=== PATIENT | male | born 1975 | race Hispanic/Latino ===

== ENCOUNTER 2017-07-06 18:47 | Inpatient (IN) | payer BC ==
[~2017-07-06] VITALS: Ht 170.2 cm; Wt 90.3 kg
[~2017-07-06 18:47] MED LIST: CELEXA20 MG PO; CLONIDINE HCL0.1 MG PO; LISINOPRIL-HCT1 EACH PO; NO KNOWN MEDS; TOPROL XL25 MG PO
[2017-07-06] MEDS ORDERED: ASPIRIN 81 MG CHEW TAB PO ONE (19:30)
[2017-07-06] MEDS ORDERED: NITROGLYCERIN 2% OINT 1 GM PKT TOP ONE (19:30)
[2017-07-06] MEDS ORDERED: METOPROLOL TARTRATE 25 MG TAB PO ONE (19:30)
[2017-07-06 19:44] LABS: BASOPHILS # (AUTO) 0.1 (0.0-0.1); BASOPHILS % 0.7 % (0.0-1.0); EOSINOPHILS # (AUTO) 0.2 (0.0-0.4); EOSINOPHILS % 1.4 % (0.0-6.0); HEMATOCRIT 46.5 % (38.2-49.6); HEMOGLOBIN 15.7 g/dL (14.0-18.0); LYMPHOCYTES # (AUTO) 3.4 (1.0-3.2); LYMPHOCYTES % 31.1 % (18.0-39.1); MEAN CORPUSCULAR HEMOGLOBIN 29.8 pg (28-32); MEAN CORPUSCULAR HGB CONC 33.8 g/dL (31-35); MEAN CORPUSCULAR VOLUME 88.2 fL (81-99); MONOCYTES # (AUTO) 1.2 (0.2-0.8); MONOCYTES % 10.8 % (4.4-11.3); NEUTROPHILS % 55.6 % (38.7-80.0); PLATELET COUNT 229 x10e3/uL (140-360); RED BLOOD COUNT 5.27 x10e6/uL (4.3-5.7); RED CELL DISTRIBUTION WIDTH 12.9 % (11.7-14.4)
[2017-07-06 19:45] LABS: KETONES,URINE NEGATIVE (NEGATIVE); LEUKOCYTE ESTERASE ,URINE TRACE (NEGATIVE); URINE UROBILINOGEN 8 mg/dL (0.2 - 1)
[2017-07-06 19:49] LABS: BILIRUBIN,URINE 1+ (NEGATIVE); CLARITY,URINE SL CLOUDY (CLEAR); COLOR,URINE YELLOW (YELLOW); NITRITE,URINE POSITIVE (NEGATIVE); PROTEIN,URINE DIPSTICK 2+ (NEGATIVE)
[2017-07-06 19:52] LABS: INR 1.4; PARTIAL THROMBOPLASTIN TIME 31.9 seconds (23.8-35.5); PROTHROMBIN TIME 17.9 seconds (11.9-14.5)
[2017-07-06 19:53] LABS: AMPHETAMINES SCREEN,URINE NEGATIVE (NEGATIVE); BENZODIAZEPINES SCREEN,URINE NEGATIVE (NEGATIVE); CANNABINOIDS SCREEN,URINE NEGATIVE (NEGATIVE); PHENCYCLIDINE SCREEN,URINE NEGATIVE (NEGATIVE)
[2017-07-06 19:57] LABS: STREPTOCOCCUS GRP A ANTIGEN NEGATIVE (NEGATIVE)
[2017-07-06 20:01] LABS: EPITHELIAL CELLS,URINE RARE /LPF; RBC,URINE 0-5 /HPF (0-5)
[2017-07-06 20:02] LABS: ALANINE AMINOTRANSFERASE 35 IU/L (0-55); ALBUMIN 3.7 g/dL (3.5-5.0); ALBUMIN/GLOBULIN RATIO 1.1 (0.8-2.0); ALKALINE PHOSPHATASE 53 IU/L (40-150); AMYLASE 23 U/L (25-125); ANION GAP 15.8 mmol/L (8-16); BLOOD UREA NITROGEN 17 mg/dL (7-26); BUN/CREATININE RATIO 16 (6-25); CALCIUM 9.1 mg/dL (8.4-10.2); CARBON DIOXIDE 22 mmol/L (22-29); CHLORIDE 108 mmol/L (98-107); CREATINE KINASE 54 IU/L (30-200); CREATININE, SERUM 1.07 mg/dL (0.72-1.25); EST GLOMERULAR FILTRATION RATE > 60 ML/MIN (60-); GLUCOSE 117 mg/dL (74-118); LIPASE 8 U/L (8-78); MAGNESIUM 1.5 MG/DL (1.3-2.1); POTASSIUM 3.8 mmol/L (3.5-5.1); SODIUM 142 mmol/L (136-145)
[2017-07-06 20:06] LABS: INFLUENZAE A&B ANTIGEN (RAPID) NEGATIVE (NEGATIVE)
[2017-07-06 20:22] LABS: THYROID STIMULATING HORMONE 4.442 uIU/mL (0.350-4.940); TROPONIN I 0.059 ng/mL (0-0.300)
--- NOTE | 2017-07-06 21:06 | Diagnostic Imaging Report ---
EXAM: CT Chest WITH contrast (PE protocol) 07/06/2017 8:12 PM INDICATION: \S\PE PROTOCOL, SOB POSITIVE D-DIMER COMPARISON: None TECHNIQUE: Chest was scanned utilizing a multidetector helical scanner from the lung apex through the level of the adrenal glands without administration of IV contrast. Coronal and sagittal reformations were obtained. PE protocol was performed. IV CONTRAST: 100 mL of Isovue 370 COMPLICATIONS: None RADIATION DOSE: Total DLP: 565.4 mGy*cm Estimated effective dose: (DLP x 0.014 x size factor) mSv CTDIvol has been reviewed. It is below the limits set by the Radiation Protocol Committee (RPC). FINDINGS: LINES/ TUBES: None. LUNGS AND AIRWAYS: Good contrast bolus. No pulmonary emboli. Focal patchy groundglass opacity in the right lower lobe. Airways are normal. PLEURA: Moderate right and small left pleural effusion. HEART AND MEDIASTINUM: The thyroid gland is normal. No mediastinal, hilar or axillary lymphadenopathy. Multiple small nonspecific mediastinal lymph nodes. The heart is mildly enlarged. There is no pericardial effusion. Residual thymic tissues. UPPER ABDOMEN: Reflux of contrast into the IVC and hepatic veins suggesting elevated right heart pressure. BONES: The visualized bony thorax is within normal limits. SOFT TISSUES: Unremarkable. IMPRESSION: 1. No pulmonary emboli. 2. Mild cardiomegaly. Reflux of contrast into hepatic veins, indicating elevated right heart pressure 3. Multiple small nonspecific mediastinal lymph nodes. 4. Moderate right and small left pleural effusions. 5. Focal nonspecific patchy groundglass opacities in the right lower lobe. This may represent focal pneumonia. Signed by: Dr. Javier Valles M.D. on 07/06/2017 9:02 PM
--- NOTE | 2017-07-06 21:16 | Diagnostic Imaging Report ---
CHEST 2 VIEWS, Technique: CHEST 2 VIEWS Comparison: None Clinical history: \S\SOB/NELSON X 2 WEEKS, COUGH \S\[id number] \S\1949 DISCUSSION: Mildly enlarged cardiac silhouette. No edema or consolidation. No pleural effusion or pneumothorax. IMPRESSION: Mildly enlarged cardiac silhouette. Otherwise negative. Signed by: Dr Dottie Zaragoza MD on 07/06/2017 9:12 PM
[2017-07-06] MEDS ORDERED: ENALAPRILAT IV INJ 1.25 MG/ML VIAL IV STA (21:25)
[2017-07-06] MEDS: CEFTRIAXONE SOD 1 GM VIAL IV SCH (21:42)
[2017-07-06] MEDS: AZITHROMYCIN 500MG/NS 250 ML 250 ML IV SCH (21:42)
[2017-07-06 23:15] VITALS: BP 133/101
[2017-07-06] MEDS ORDERED: ONDANSETRON HCL INJ 2 MG/ML VIAL IV PRN (23:15)
[2017-07-07] VITALS (7 sets, daily range): BP systolic 105–143; BP diastolic 59–104
[2017-07-07] MEDS: NITROGLYCERIN 2% OINT 1 GM PKT TOP SCH ×5 (06:00→23:51)
[2017-07-07 08:21] LABS: BASOPHILS # (AUTO) 0.1 (0.0-0.1); BASOPHILS % 0.6 % (0.0-1.0); EOSINOPHILS # (AUTO) 0.1 (0.0-0.4); EOSINOPHILS % 1.1 % (0.0-6.0); HEMATOCRIT 40.9 % (38.2-49.6); HEMOGLOBIN 13.8 g/dL (14.0-18.0); LYMPHOCYTES # (AUTO) 3.1 (1.0-3.2); LYMPHOCYTES % 31.8 % (18.0-39.1); MEAN CORPUSCULAR HEMOGLOBIN 29.9 pg (28-32); MEAN CORPUSCULAR HGB CONC 33.7 g/dL (31-35); MEAN CORPUSCULAR VOLUME 88.5 fL (81-99); MONOCYTES # (AUTO) 1.3 (0.2-0.8); MONOCYTES % 12.8 % (4.4-11.3); NEUTROPHILS # (AUTO) 5.2 (2.1-6.9); NEUTROPHILS % 53.3 % (38.7-80.0); PLATELET COUNT 194 x10e3/uL (140-360); RED BLOOD COUNT 4.62 x10e6/uL (4.3-5.7); RED CELL DISTRIBUTION WIDTH 12.9 % (11.7-14.4)
[2017-07-07] MEDS ORDERED: IOPAMIDOL 370 MG/ML 200 ML INFUS..BTL INJ ONE (08:25)
[2017-07-07] MEDS ORDERED: SODIUM CHLORIDE 0.9% 50ML 50 ML ONE (08:25)
[2017-07-07 08:37] LABS: ALANINE AMINOTRANSFERASE 31 IU/L (0-55); ALBUMIN 3.1 g/dL (3.5-5.0); ALBUMIN/GLOBULIN RATIO 1.1 (0.8-2.0); ALKALINE PHOSPHATASE 43 IU/L (40-150); ANION GAP 15.6 mmol/L (8-16); BLOOD UREA NITROGEN 17 mg/dL (7-26); BUN/CREATININE RATIO 20 (6-25); CALCIUM 8.4 mg/dL (8.4-10.2); CARBON DIOXIDE 22 mmol/L (22-29); CHLORIDE 108 mmol/L (98-107); CREATINE KINASE 42 IU/L (30-200); CREATININE, SERUM 0.83 mg/dL (0.72-1.25); EST GLOMERULAR FILTRATION RATE > 60 ML/MIN (60-); GLUCOSE 91 mg/dL (74-118); POTASSIUM 3.6 mmol/L (3.5-5.1); SODIUM 142 mmol/L (136-145)
[2017-07-07 08:44] LABS: TROPONIN I 0.049 ng/mL (0-0.300)
[2017-07-07] MEDS: AZITHROMYCIN 500MG/NS 250 ML 250 ML IV SCH (08:44)
[2017-07-07] MEDS: ASPIRIN 81 MG ENTERIC COATED PO SCH (08:44)
[2017-07-07] MEDS: CEFTRIAXONE SOD 1 GM VIAL IV SCH ×2 (08:45→21:43)
[2017-07-07] MEDS: CLONIDINE HCL 0.1 MG TAB PO SCH ×3 (08:45→21:43)
[2017-07-07] MEDS: LISINOPRIL 20 MG TAB PO SCH (08:45)
[2017-07-07] MEDS: CITALOPRAM HYDROBROMIDE 20 MG TAB PO SCH (08:45)
[2017-07-07] MEDS: METOPROLOL TARTRATE 25 MG TAB PO SCH ×2 (08:45→16:26)
[2017-07-07] MEDS ORDERED: SODIUM CHLORIDE 0.9% 250ML 250 ML ONE (08:50)
[2017-07-07] MEDS ORDERED: HYDROCHLOROTHIAZIDE 25 MG TAB PO SCH (09:00)
[2017-07-07 16:17] LABS: CREATINE KINASE MB 0.8 ng/mL (0.00-5.00); TROPONIN I 0.04 ng/mL (0-0.300)
--- NOTE | 2017-07-07 18:40 | History and Physical ---
CHIEF COMPLAINT: Shortness of breath. HPI: Mr. Quinn is a 42-year-old male who presented to the emergency room with shortness of breath. He does not have any known medical problem. He knows that he has hypertension. However, he does not take any medications for it. He denies any chest pain. He feels much better after receiving diuretics and blood pressure control in the emergency room. He denies any chest pain, nausea or vomiting. REVIEW OF SYSTEMS GENERAL: Denies any fever or chills. HEENT: Denies any head trauma or head injury. ENT: Denies any earache, nosebleed or throat pain. CV: Denies any chest pain. RESPIRATORY: The patient has some shortness of breath, which is much better. PAST MEDICAL HISTORY: Hypertension. PAST SURGICAL HISTORY: None. FAMILY AND SOCIAL HISTORY: He is a life-long nonsmoker. Does not drink. Family history of diabetes. PHYSICAL EXAMINATION VITAL SIGNS: Temperature 97.4, pulse 98, blood pressure 105/59, respiratory rate 18, and O2 sat 95% on room air. SKIN: Warm and dry. GENERAL: He is a young male not in any obvious distress. He is awake and alert. Following commands. Responds to questions appropriately. HEENT: Atraumatic and normocephalic. Pupils reactive. NECK: Supple. No JVD. No thyroid nodule. CHEST: Clear to auscultation bilaterally. Decreased air entry in the bases. HEART: S1 and S2 audible. ABDOMEN: Soft and nontender. EXTREMITIES: No clubbing, cyanosis or edema. NEUROLOGIC: Awake and alert. LABS: Sodium 142, potassium 3.6, chloride 108, BUN 17, creatinine 0.8. White count of 9.8, hemoglobin 13.[address] platelets 194,000. CT of the chest: I have reviewed the films and showing small bilateral pleural effusions. No PE. The report says mild cardiomegaly and small pleural effusion. ASSESSMENT AND PLAN: Mr. Quinn is a 42-year-old male with shortness of breath. Has bilateral pleural effusion. Possibility of heart failure and hypertensive heart disease. Does not have any pneumonia. PLAN 1. Cardiology consult has been called. 2. Echo has been ordered and awaiting the results. 3. Discontinue hydrochlorothiazide. Start the patient on Lasix 40 mg IV daily. 4. Continue Rocephin and azithromycin for possibility of pneumonia. 5. Blood pressure is now controlled with current medications. Job#: [id number] RI
[2017-07-08] VITALS (8 sets, daily range): BP systolic 106–141; BP diastolic 66–98
--- NOTE | 2017-07-08 04:00 | Consultation ---
DATE OF CONSULTATION: CHIEF COMPLAINT: Shortness of breath. HPI: Mr. Quinn is a 42 DICTATION NOT COMPLETED, LENGTH 0:30 Job#: [id number] RI
--- NOTE | 2017-07-08 04:49 | Consultation ---
DATE OF CONSULTATION: July 07, 2017 CARDIOLOGY CONSULTATION Thank you so much for this consultation. DIAGNOSES 1. Acute on possible chronic congestive cardiomyopathy. 2. History of systemic hypertension. Mr. 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 As the shortness of breath increased, patient came to the hospital. Patient was taking medications for blood pressure, the name of which is not known at this time. Patient denies any history of chest pain, myocardial infarction, or diabetes mellitus. He does not abuse too much alcohol. Patient has a history of hypertension for many years. He is not going to any doctor at this time. Patient did not have any flu or symptoms of any viral illness in the recent past. He has got grown up children. The family was with him, daughter, sister and 2 sons were there. ALLERGIES: NO ALLERGIES. SURGERIES: No major surgeries in the recent past. PHYSICAL EXAMINATION HEART: Reveals no heart murmurs or heart attack. No 3rd heart sound. LUNGS: Normal. ABDOMEN: Normal. NEUROLOGICAL: Normal. SKIN: Normal. EXTREMITIES: No pedal edema. EKG shows sinus rhythm, heart rate 100 per minute and nonspecific changes. Troponin is negative. Renal functions are normal. Chest x-ray shows mild cardiomegaly. Echocardiogram shows left ventricular ejection fraction of less than 20% with mild LVH and LV enlargement, and moderate pulmonary hypertension. At this time, discussed with him. He does have cardiac issues, possibly congestive cardiomyopathy. He needs to be in the hospital for 48 hours. Will start the medication of aspirin 81 mg a day, Coreg 3.125 mg p.o. b.i.d., lisinopril 5 mg once a day, Lasix 40 mg daily, and potassium 10 mEq once a day. Patient was told that he cannot do much exertion for the next 2-3 weeks. Once his heart failure symptoms decrease, probably he will be able to do moderate exertion. At this time when he goes home, the patient needs to have a Life Vest put in. I have not told him yet. I will tell him tomorrow. In the meantime, will continue present medications, and also will put him on low salt diet when he goes home. Job#: [id number] RI
[2017-07-08] MEDS: NITROGLYCERIN 2% OINT 1 GM PKT TOP SCH ×3 (06:00→16:48)
[2017-07-08] MEDS: CITALOPRAM HYDROBROMIDE 20 MG TAB PO SCH (09:11)
[2017-07-08] MEDS: ASPIRIN 81 MG ENTERIC COATED PO SCH (09:11)
[2017-07-08] MEDS: CLONIDINE HCL 0.1 MG TAB PO SCH ×3 (09:11→20:53)
[2017-07-08] MEDS: FUROSEMIDE INJ 10 MG/ML 4 ML VIAL IV SCH (09:11)
[2017-07-08] MEDS: AZITHROMYCIN 500MG/NS 250 ML 250 ML IV SCH (09:11)
[2017-07-08] MEDS: METOPROLOL TARTRATE 25 MG TAB PO SCH ×2 (09:12→16:47)
[2017-07-08] MEDS: LISINOPRIL 20 MG TAB PO SCH (09:12)
[2017-07-08] MEDS: CEFTRIAXONE SOD 1 GM VIAL IV SCH ×2 (09:12→20:53)
--- NOTE | 2017-07-08 17:26 | Progress Note ---
DATE: July 08, 2017 CARDIOLOGY PROGRESS NOTE Patient seen in the room. Patient awake, alert. Patient does not have any significant problem. Patient came with shortness of breath, is known patient with hypertension. Echo EF is 20%. Patient is on MORENITA inhibitor and also beta pipo and also Lasix. Patient needs to stay a couple of days more. Patient probably will undergo nuclear stress test on Sunday. At this time, patient will continue all his present medication and patient given antibiotic also. Job#: [id number] EV
[2017-07-09] VITALS (7 sets, daily range): BP systolic 95–135; BP diastolic 67–99
[2017-07-09] MEDS: NITROGLYCERIN 2% OINT 1 GM PKT TOP SCH ×4 (05:31→18:00)
[2017-07-09] MEDS: CITALOPRAM HYDROBROMIDE 20 MG TAB PO SCH (09:34)
[2017-07-09] MEDS: CLONIDINE HCL 0.1 MG TAB PO SCH ×3 (09:34→22:50)
[2017-07-09] MEDS: FUROSEMIDE INJ 10 MG/ML 4 ML VIAL IV SCH (09:34)
[2017-07-09] MEDS: LISINOPRIL 20 MG TAB PO SCH (09:34)
[2017-07-09] MEDS: CEFTRIAXONE SOD 1 GM VIAL IV SCH ×2 (09:34→22:50)
[2017-07-09] MEDS: ASPIRIN 81 MG ENTERIC COATED PO SCH (09:34)
[2017-07-09] MEDS: METOPROLOL TARTRATE 25 MG TAB PO SCH ×2 (09:34→18:24)
[2017-07-09] MEDS: AZITHROMYCIN 500MG/NS 250 ML 250 ML IV SCH (09:34)
--- NOTE | 2017-07-09 22:18 | Progress Note ---
DATE: July 09, 2017 CARDIOLOGY PROGRESS NOTE Patient admitted with shortness of breath. Patient has got congestive cardiomyopathy and troponin negative. Patient with mild shortness of breath this evening. Patient getting anxious. I did explain to him the kind of heart condition he has, we are going to do a Lexiscan nuclear stress tomorrow. Depending upon results, we may further evaluate him or treat him medically. The patient probably will go home with LifeVest when he goes home, which I will discuss with him tomorrow. About angiogram, we probably will depend upon the Lexiscan stress test. The mother also was at bedside. Mother, I believe, had coronary stents put in. She has got diabetes. However, patient does not have diabetes at this time. Job#: [id number] CF
[2017-07-10] VITALS: BP 109/76
[2017-07-10] MEDS: NITROGLYCERIN 2% OINT 1 GM PKT TOP SCH ×4 (06:00→17:38)
[2017-07-10] MEDS: POTASSIUM CHLORIDE 10 MEQ TABCR PO SCH ×2 (08:28→17:55)
[2017-07-10] MEDS: AZITHROMYCIN 500MG/NS 250 ML 250 ML IV SCH (08:28)
[2017-07-10] MEDS: CLONIDINE HCL 0.1 MG TAB PO SCH ×3 (08:28→21:00)
[2017-07-10] MEDS: ASPIRIN 81 MG ENTERIC COATED PO SCH (08:28)
[2017-07-10] MEDS: CITALOPRAM HYDROBROMIDE 20 MG TAB PO SCH (08:28)
[2017-07-10] MEDS: LISINOPRIL 20 MG TAB PO SCH (08:29)
[2017-07-10 08:44] VITALS: BP 149/103
[2017-07-10] MEDS: METOPROLOL TARTRATE 25 MG TAB PO SCH ×2 (09:00→17:55)
[2017-07-10 10:59] VITALS: BP 149/90
[2017-07-10] MEDS: FUROSEMIDE INJ 10 MG/ML 4 ML VIAL IV SCH (11:45)
--- NOTE | 2017-07-10 13:37 | Progress Note ---
DATE: July 10, 2017 CARDIOLOGY PROGRESS NOTE Patient's shortness of breath is better. No chest pain. Patient got cardiomyopathy. Today, ordered nuclear stress test and it is being done. Patient's echo EF was 20%. This time, the nuclear stress test was performed to see if he has got any ischemic heart disease. Probably, he may go home in 24 to 48 hours if there is no evidence of ischemia. When he goes home, he needs to have a LifeVest put in because of significant LV function decrease that may lead into V-tach and V-fib, so we need to have a LifeVest and other medications. Anyhow, discussed with him also. The patient never had an AL. The patient has no history of diabetes mellitus. I discussed with him alcohol probably may be responsible for this cardiomyopathy, but I am not sure. Anyhow, he was told he needs to quit drinking alcohol. At this time, the patient is doing well, but still has critical LV function, which is very low. Job#: [id number] MIKE
[2017-07-10] MEDS ORDERED: REGADENOSON 0.4 MG/5 ML SYR IV ONE (13:41)
[2017-07-10] MEDS: CEFTRIAXONE SOD 1 GM VIAL IV SCH (14:57)
[2017-07-10] MEDS ORDERED: GUAIFENESIN 200 MG/10 ML UDC PO PRN (15:15)
[2017-07-10 15:59] VITALS: BP 115/81
[2017-07-10 17:06] VITALS: BP 137/102
[2017-07-10] MEDS: THIAMINE HCL 100 MG TAB PO SCH (17:55)
[2017-07-10] MEDS: LOSARTAN POTASSIUM 100 MG TAB PO SCH (17:55)
[2017-07-10 20:00] VITALS: BP 99/70
[2017-07-10] MEDS: BENZONATATE 100 MG CAP PO SCH (21:28)
[2017-07-11] VITALS (7 sets, daily range): BP systolic 102–126; BP diastolic 71–85
[2017-07-11] MEDS: NITROGLYCERIN 2% OINT 1 GM PKT TOP SCH ×4 (06:00→17:18)
--- NOTE | 2017-07-11 06:26 | Diagnostic Imaging Report ---
EXAMINATION: CHEST 2 VIEWS INDICATION: Cough. COMPARISON: 07/06/2017 FINDINGS: TUBES and LINES: None. LUNGS: Lungs are not well inflated. Right lower lobe airspace disease . PLEURA: Trace of right pleural effusion present HEART AND MEDIASTINUM: Cardiac size is moderately enlarged. BONES AND SOFT TISSUES: No acute osseous lesion. Soft tissues are unremarkable. UPPER ABDOMEN: No free air under the diaphragm. IMPRESSION: Findings are suspicious for developing pneumonia in the right lower lobe with small pleural effusion. Signed by: Dr. Frandy Rios M.D. on 07/11/2017 6:22 AM
[2017-07-11 07:22] LABS: BASOPHILS # (AUTO) 0.1 (0.0-0.1); BASOPHILS % 0.4 % (0.0-1.0); EOSINOPHILS % 0.3 % (0.0-6.0); HEMATOCRIT 44.5 % (38.2-49.6); LYMPHOCYTES # (AUTO) 2.1 (1.0-3.2); MEAN CORPUSCULAR HEMOGLOBIN 29.6 pg (28-32); MEAN CORPUSCULAR HGB CONC 33.7 g/dL (31-35); MEAN CORPUSCULAR VOLUME 87.8 fL (81-99); MONOCYTES # (AUTO) 2.2 (0.2-0.8); MONOCYTES % 16.4 % (4.4-11.3); NEUTROPHILS # (AUTO) 8.8 (2.1-6.9); NEUTROPHILS % 66.3 % (38.7-80.0); PLATELET COUNT 239 x10e3/uL (140-360); RED BLOOD COUNT 5.07 x10e6/uL (4.3-5.7); RED CELL DISTRIBUTION WIDTH 13.1 % (11.7-14.4)
[2017-07-11 07:53] LABS: ALANINE AMINOTRANSFERASE 33 IU/L (0-55); ALBUMIN 3.1 g/dL (3.5-5.0); ALBUMIN/GLOBULIN RATIO 0.9 (0.8-2.0); ALKALINE PHOSPHATASE 45 IU/L (40-150); ANION GAP 14.3 mmol/L (8-16); BLOOD UREA NITROGEN 20 mg/dL (7-26); BUN/CREATININE RATIO 17 (6-25); CALCIUM 8.6 mg/dL (8.4-10.2); CARBON DIOXIDE 23 mmol/L (22-29); CHLORIDE 104 mmol/L (98-107); CREATININE, SERUM 1.16 mg/dL (0.72-1.25); EST GLOMERULAR FILTRATION RATE > 60 ML/MIN (60-); GLUCOSE 103 mg/dL (74-118); POTASSIUM 3.3 mmol/L (3.5-5.1); SODIUM 138 mmol/L (136-145)
[2017-07-11] MEDS: CLONIDINE HCL 0.1 MG TAB PO SCH ×3 (08:51→21:30)
[2017-07-11] MEDS: ASPIRIN 81 MG ENTERIC COATED PO SCH (08:51)
[2017-07-11] MEDS: AZITHROMYCIN 500MG/NS 250 ML 250 ML IV SCH (08:51)
[2017-07-11] MEDS: FUROSEMIDE INJ 10 MG/ML 4 ML VIAL IV SCH (08:51)
[2017-07-11] MEDS: POTASSIUM CHLORIDE 10 MEQ TABCR PO SCH ×2 (08:51→16:59)
[2017-07-11] MEDS: CITALOPRAM HYDROBROMIDE 20 MG TAB PO SCH (08:51)
[2017-07-11] MEDS: LOSARTAN POTASSIUM 100 MG TAB PO SCH ×2 (08:51→16:59)
[2017-07-11] MEDS: THIAMINE HCL 100 MG TAB PO SCH (08:52)
[2017-07-11] MEDS: METOPROLOL TARTRATE 25 MG TAB PO SCH ×2 (08:52→16:59)
[2017-07-11] MEDS: BENZONATATE 100 MG CAP PO SCH ×3 (08:52→21:30)
[2017-07-11 09:53] LABS: LYMPHOCYTES % (MANUAL) 18 % (19-48); MONOCYTES % (MANUAL) 11 % (3.4-9.0); NEUTROPHILS % (MANUAL) 70 % (40-74)
[2017-07-11 09:54] LABS: ANISOCYTOSIS SLIGHT; PLATELET ESTIMATE ADEQUATE; PLATELET MORPHOLOGY COMMENT FEW LARGE; RBC MORPHOLOGY COMMENT NORMAL
[2017-07-11] MEDS: CEFEPIME HCL 1 GM VIAL IV SCH ×2 (15:07→21:31)
[2017-07-11] MEDS: DOXYCYCLINE HYCLATE TABLET 100 MG TAB PO SCH (16:59)
--- NOTE | 2017-07-11 20:25 | Progress Note ---
DATE: July 11, 2017 CARDIOLOGY PROGRESS NOTE The patient is seen. The patient still has some shortness of breath and also coughing. The patient's ejection fraction is about 20%. The patient's nuclear test is indeterminate because of a lot of artifacts. However, the patient at this time needs to stay in the hospital a few more days because CHF has not improved. Will continue present medications along with IV antibiotics. Probably, the patient needs coronary angiogram to open CVA vein. Will try to do it the next admission. If he feels symptomatically better, will do on Sunday. In the meantime, I discussed with him his long-term prognosis. When he goes home, he is to go home with a LifeVest and present medications. IMPRESSION: Sasja-fl-vggktmh congestive heart failure. Cardiomyopathy, rule out coronary artery disease. It is more behaving like non-ischemic cardiomyopathy. The patient's troponin is negative. Job#: [id number] GH
[2017-07-12] VITALS (8 sets, daily range): BP systolic 103–127; BP diastolic 73–91
[2017-07-12] MEDS: NITROGLYCERIN 2% OINT 1 GM PKT TOP SCH ×4 (06:00→17:14)
[2017-07-12] MEDS: CEFEPIME HCL 1 GM VIAL IV SCH ×3 (06:25→21:48)
[2017-07-12 06:56] LABS: BASOPHILS # (AUTO) 0.1 (0.0-0.1); BASOPHILS % 0.4 % (0.0-1.0); EOSINOPHILS # (AUTO) 0.1 (0.0-0.4); EOSINOPHILS % 0.9 % (0.0-6.0); HEMATOCRIT 42.4 % (38.2-49.6); HEMOGLOBIN 14.4 g/dL (14.0-18.0); LYMPHOCYTES # (AUTO) 1.8 (1.0-3.2); LYMPHOCYTES % 15.2 % (18.0-39.1); MEAN CORPUSCULAR HEMOGLOBIN 29.6 pg (28-32); MEAN CORPUSCULAR VOLUME 87.2 fL (81-99); MONOCYTES # (AUTO) 1.6 (0.2-0.8); MONOCYTES % 13.2 % (4.4-11.3); NEUTROPHILS # (AUTO) 8.3 (2.1-6.9); PLATELET COUNT 248 x10e3/uL (140-360); RED BLOOD COUNT 4.86 x10e6/uL (4.3-5.7); RED CELL DISTRIBUTION WIDTH 12.8 % (11.7-14.4)
[2017-07-12 07:12] LABS: INR 1.4; PROTHROMBIN TIME 17.9 seconds (11.9-14.5)
[2017-07-12 07:24] LABS: ANION GAP 15.3 mmol/L (8-16); CALCIUM 8.3 mg/dL (8.4-10.2); CREATININE, SERUM 1.49 mg/dL (0.72-1.25); POTASSIUM 3.3 mmol/L (3.5-5.1)
[2017-07-12] MEDS: CLONIDINE HCL 0.1 MG TAB PO SCH ×3 (09:02→21:00)
[2017-07-12] MEDS: POTASSIUM CHLORIDE 10 MEQ TABCR PO SCH ×2 (09:02→16:19)
[2017-07-12] MEDS: ASPIRIN 81 MG ENTERIC COATED PO SCH (09:02)
[2017-07-12] MEDS: FUROSEMIDE INJ 10 MG/ML 4 ML VIAL IV SCH (09:02)
[2017-07-12] MEDS: LOSARTAN POTASSIUM 100 MG TAB PO SCH ×2 (09:02→16:19)
[2017-07-12] MEDS: CITALOPRAM HYDROBROMIDE 20 MG TAB PO SCH (09:02)
[2017-07-12] MEDS: METOPROLOL TARTRATE 25 MG TAB PO SCH ×2 (09:03→16:20)
[2017-07-12] MEDS: DOXYCYCLINE HYCLATE TABLET 100 MG TAB PO SCH ×2 (09:03→16:20)
[2017-07-12] MEDS: BENZONATATE 100 MG CAP PO SCH ×3 (09:03→21:48)
[2017-07-12] MEDS: THIAMINE HCL 100 MG TAB PO SCH (09:03)
[2017-07-12 09:11] LABS: ANISOCYTOSIS SLIGHT; HYPOCHROMASIA SLIGHT; LYMPHOCYTES % (MANUAL) 14 % (19-48); MONOCYTES % (MANUAL) 17 % (3.4-9.0); NEUTROPHILS % (MANUAL) 69 % (40-74); PLATELET ESTIMATE ADEQUATE; PLATELET MORPHOLOGY COMMENT NORMAL; RBC MORPHOLOGY COMMENT NORMAL
--- NOTE | 2017-07-12 11:44 | Cardiology Report ---
DATE OF STUDY: July 10, 2017 NUCLEAR GATED MYOCARDIAL PERFUSION SCAN Nuclear gated myocardial perfusion scan performed as per protocol at nuclear medicine lab. I supervised the nuclear stress test and interpreted the nuclear stress test. Lexiscan was injected 0.4 mg intravenously. Myoview was injected 10.1 millicuries per resting protocol and 30.8 millicuries per stress protocol. Left ventricular severe global hypokinesia. Ejection fraction 50%. No evidence of ischemia or scar noted. It appears to be a dilated, nonischemic cardiomyopathy. Job#: [id number]
--- NOTE | 2017-07-12 12:44 | Progress Note ---
DATE: July 12, 2017 CARDIOLOGY PROGRESS NOTE The patient is doing well. The patient's shortness of breath is better. The patient is going to have a coronary angiogram tomorrow. The patient has a very low EF, about 20%. Nuclear test did not show much ischemia. However, because of the low ejection fraction, the patient is scheduled to have a coronary angiogram tomorrow. After that, if the coronary arteries are normal, the patient will go home on Sunday. I discussed with him that he may need to wear a LifeVest for 3 months. The patient needs to be on present anti-CHF medication. Then we will slowly escalate his beta blockers and MORENITA inhibitors. We will add on spironolactone and other medications as an outpatient. I did tell him if he is feeling better and he is able to sit at least 6 to 8 hours a day, maybe today he can try to sit in the chair and able to walk every 15 minutes a couple of minutes, may I will send him back to work in 1 week from now if his coronary arteries are normal. I did explain to him the problem he has is going to stay with him least 3 months. After that, we will do an echocardiogram. If the ejection fraction is improved to more than 35%, we will take the LifeVest off, or if the ejection fraction continues to be less than 35%, he needs to wear the defibrillator. I explained to him the reason why we are putting a LifeVest on and the necessity of following for 3 months. The patient was advised at this time not to do much physical activity. When he goes to work, we will give limitations of work. Job#: [id number]
[2017-07-12] MEDS ORDERED: ENOXAPARIN INJ 80 MG/0.8 ML SYR SC ONE (16:15)
[2017-07-13] VITALS (8 sets, daily range): BP systolic 117–136; BP diastolic 81–91
[2017-07-13] MEDS: CEFEPIME HCL 1 GM VIAL IV SCH (05:41)
[2017-07-13] MEDS: NITROGLYCERIN 2% OINT 1 GM PKT TOP SCH ×4 (05:41→17:05)
[2017-07-13] MEDS: ASPIRIN 81 MG ENTERIC COATED PO SCH (09:00)
[2017-07-13] MEDS: FUROSEMIDE 40 MG TAB PO SCH (10:22)
[2017-07-13] MEDS: CLONIDINE HCL 0.1 MG TAB PO SCH ×2 (10:22→17:05)
[2017-07-13] MEDS: BENZONATATE 100 MG CAP PO SCH ×3 (10:22→21:00)
[2017-07-13] MEDS: LOSARTAN POTASSIUM 100 MG TAB PO SCH ×2 (10:22→17:05)
[2017-07-13] MEDS: DOXYCYCLINE HYCLATE TABLET 100 MG TAB PO SCH ×2 (10:22→17:05)
[2017-07-13] MEDS: POTASSIUM CHLORIDE 10 MEQ TABCR PO SCH ×2 (10:22→17:05)
[2017-07-13] MEDS: THIAMINE HCL 100 MG TAB PO SCH (10:22)
[2017-07-13] MEDS: METOPROLOL TARTRATE 25 MG TAB PO SCH ×2 (10:22→17:05)
[2017-07-13] MEDS: CITALOPRAM HYDROBROMIDE 20 MG TAB PO SCH (10:22)
[2017-07-13] MEDS ORDERED: FENTANYL CITRATE/PF 100MCG/2 ML INJ ONE (12:27)
[2017-07-13] MEDS ORDERED: LIDOCAINE HCL 2% LOCAL 20 ML VIAL ONE (12:28)
[2017-07-13] MEDS ORDERED: MIDAZOLAM HCL 2 MG/2 ML VIAL ONE (12:28)
[2017-07-13] MEDS ORDERED: HEPARIN SOD/SOD CHLORIDE 2,000 ML ONE (12:28)
[2017-07-13] MEDS ORDERED: SODIUM CHLORIDE 0.9% 1000ML 1,000 ML ONE (12:28)
[2017-07-13] MEDS ORDERED: IOPAMIDOL 370 MG/ML 200 ML INFUS..BTL INJ ONE ×2 (12:28→13:07)
[2017-07-13] MEDS ORDERED: CLONIDINE HCL 0.1 MG TAB PO SCH (16:30)
--- NOTE | 2017-07-13 18:19 | Progress Note ---
DATE: July 13, 2017 CARDIOLOGY PROGRESS NOTE The patient is seen in the room. The patient underwent heart catheterization. At this time, the patient is still in congestive heart failure. The patient will need to stay at least until Sunday. We will continue all his present medications. I ordered LifeVest which he needs to wear before leaving this hospital for the next 3 months. Also, told him the importance of complying with the low-sodium diet and only mild physical activities. The patient is to take off at least 1 week to 2 weeks before he goes back to work. Will assess him in my office before clearance to go to work. The patient also told the etiology and the complications raised from the cardiomyopathy. He needs to understand that he should abstain from alcohol completely. Job#: [id number] CALI
--- NOTE | 2017-07-13 18:25 | Operative Report ---
DATE OF PROCEDURE: July 13, 2017 PROCEDURES 1. Left heart catheterization. 2. Left ventricular angiogram. INDICATIONS FOR PROCEDURE: Congestive heart failure, class III to class IV, cardiomyopathy, and abnormal EKG. This procedure was done at [facility] heart catheterization lab. After informed consent with conscious sedation and the right femoral artery. RESULTS OF TESTS: As follows: Right coronary arteriogram was normal. Left coronary arteriogram was normal. There is a dominant right coronary artery. Left ventricular angiogram showed ejection fraction of 20% with a 2-3 plus mitral regurgitation noted. Right femoral artery closure obtained by mild compression. Continue medical treatment. Job#: [id number] MARTINEZ
[2017-07-14] VITALS (7 sets, daily range): BP systolic 118–142; BP diastolic 57–97
[2017-07-14] MEDS: NITROGLYCERIN 2% OINT 1 GM PKT TOP SCH ×4 (00:18→18:00)
[2017-07-14 08:11] LABS: ANION GAP 14.3 mmol/L (8-16); BLOOD UREA NITROGEN 24 mg/dL (7-26); BUN/CREATININE RATIO 21 (6-25); CALCIUM 8.6 mg/dL (8.4-10.2); CARBON DIOXIDE 23 mmol/L (22-29); CHLORIDE 106 mmol/L (98-107); CREATININE, SERUM 1.14 mg/dL (0.72-1.25); EST GLOMERULAR FILTRATION RATE > 60 ML/MIN (60-); GLUCOSE 114 mg/dL (74-118); POTASSIUM 3.3 mmol/L (3.5-5.1); SODIUM 140 mmol/L (136-145)
[2017-07-14] MEDS: CLONIDINE HCL 0.1 MG TAB PO SCH ×2 (08:30→18:00)
[2017-07-14] MEDS: ASPIRIN 81 MG ENTERIC COATED PO SCH (10:55)
[2017-07-14] MEDS: CITALOPRAM HYDROBROMIDE 20 MG TAB PO SCH (10:55)
[2017-07-14] MEDS: FUROSEMIDE 40 MG TAB PO SCH (10:55)
[2017-07-14] MEDS: POTASSIUM CHLORIDE 10 MEQ TABCR PO SCH ×2 (10:55→18:00)
[2017-07-14] MEDS: METOPROLOL TARTRATE 25 MG TAB PO SCH ×2 (10:55→18:00)
[2017-07-14] MEDS: LOSARTAN POTASSIUM 100 MG TAB PO SCH ×2 (10:55→18:00)
[2017-07-14] MEDS: DOXYCYCLINE HYCLATE TABLET 100 MG TAB PO SCH ×2 (10:55→18:00)
[2017-07-14] MEDS: THIAMINE HCL 100 MG TAB PO SCH (10:55)
[2017-07-14] MEDS: BENZONATATE 100 MG CAP PO SCH ×3 (10:55→20:45)
[2017-07-15] VITALS (7 sets, daily range): BP systolic 98–139; BP diastolic 62–100
[2017-07-15] MEDS: NITROGLYCERIN 2% OINT 1 GM PKT TOP SCH ×4 (05:48→18:00)
[2017-07-15] MEDS: FUROSEMIDE 40 MG TAB PO SCH (10:05)
[2017-07-15] MEDS: CITALOPRAM HYDROBROMIDE 20 MG TAB PO SCH (10:05)
[2017-07-15] MEDS: LOSARTAN POTASSIUM 100 MG TAB PO SCH ×2 (10:05→18:30)
[2017-07-15] MEDS: POTASSIUM CHLORIDE 10 MEQ TABCR PO SCH ×2 (10:05→18:30)
[2017-07-15] MEDS: CLONIDINE HCL 0.1 MG TAB PO SCH ×2 (10:05→18:30)
[2017-07-15] MEDS: ASPIRIN 81 MG ENTERIC COATED PO SCH (10:05)
[2017-07-15] MEDS: METOPROLOL TARTRATE 25 MG TAB PO SCH ×2 (10:05→18:30)
[2017-07-15] MEDS: THIAMINE HCL 100 MG TAB PO SCH (10:05)
[2017-07-15] MEDS: BENZONATATE 100 MG CAP PO SCH ×3 (10:05→22:06)
[2017-07-15] MEDS: DOXYCYCLINE HYCLATE TABLET 100 MG TAB PO SCH ×2 (10:05→18:30)
--- NOTE | 2017-07-15 13:01 | Progress Note ---
DATE: July 14, 2017 CARDIOLOGY PROGRESS NOTE DIAGNOSES 1. Nonischemic cardiomyopathy. 2. Class III congestive heart failure. 3. Obesity. Mr. Garret Quinn is a pleasant 42-year-old gentleman who came in with shortness of breath. The patient in heart failure. The patient's EF on echocardiogram, angiogram was about 20%. The patient also has got 2+ to 3+ mitral regurgitation by angiogram. The patient at this time is on anti-CHF treatment. He is still having shortness of breath, but is also fatigued and weak and with major depression. At this time, once his heart failure is well controlled, the patient will go home with a LifeVest which has been already ordered, but I believe his insurance has not approved the LifeVest, and most probably will get approved by Sunday or Sunday. I discussed at length about his cardiac condition and advised him low-salt diet and daily weight and to keep watch on his shortness of breath. He cannot go to work for at least the next 2 weeks. 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 The patient also advised not to drink alcohol and not smoke. He is not a smoker. The patient is . He has 3 children, but he is living alone. Mother also helps him. Job#: [id number]
[2017-07-16] VITALS (7 sets, daily range): BP systolic 95–150; BP diastolic 76–99
[2017-07-16] MEDS: NITROGLYCERIN 2% OINT 1 GM PKT TOP SCH ×4 (05:46→16:35)
[2017-07-16] MEDS: ASPIRIN 81 MG ENTERIC COATED PO SCH (08:34)
[2017-07-16] MEDS: DOXYCYCLINE HYCLATE TABLET 100 MG TAB PO SCH ×2 (08:34→16:35)
[2017-07-16] MEDS: METOPROLOL TARTRATE 25 MG TAB PO SCH ×2 (08:34→16:35)
[2017-07-16] MEDS: FUROSEMIDE 40 MG TAB PO SCH (08:34)
[2017-07-16] MEDS: THIAMINE HCL 100 MG TAB PO SCH (08:34)
[2017-07-16] MEDS: CITALOPRAM HYDROBROMIDE 20 MG TAB PO SCH (08:34)
[2017-07-16] MEDS: BENZONATATE 100 MG CAP PO SCH ×3 (08:34→20:23)
[2017-07-16] MEDS: POTASSIUM CHLORIDE 10 MEQ TABCR PO SCH ×2 (08:34→16:34)
[2017-07-16] MEDS: LOSARTAN POTASSIUM 100 MG TAB PO SCH ×2 (08:34→16:34)
[2017-07-16] MEDS: CLONIDINE HCL 0.1 MG TAB PO SCH ×2 (08:35→16:34)
--- NOTE | 2017-07-16 10:04 | Progress Note ---
DATE: July 15, 2017 CARDIOLOGY PROGRESS NOTE I discussed with the family, the patient and the mother. DIAGNOSES 1. Nonischemic cardiomyopathy. 2. Chronic congestive heart failure. 3. Hyapj-io-rxudddr congestive heart failure: Left ventricular ejection fraction is about 20%. 4. Normal coronary arteries. At this time, the patient is on anti-CHF medications. His Life Vest has not been approved. He is waiting for the Life Vest. When his Life Vest is put in, he can go home tomorrow. At this time, encouraged him to walk and do mild walking on the floor. If there are any breathing problems, will watch him and also will watch the monitor. He needs to continue on NSAID medications. From a cardiac point of view, the patient may be discharged tomorrow with a Life Vest. Patient will continue all the medications with a low-fat, low-salt diet. Job#: [id number] MARTINEZ
--- NOTE | 2017-07-16 15:18 | Progress Note ---
DATE: July 16, 2017 CARDIOLOGY PROGRESS NOTE Patient seen in the room. Patient is sitting in the chair. No orthopnea. No shortness of breath. Patient's ejection fraction is less than 20%. Normal coronary arteries. The patient came with shortness of breath. The patient in the meantime developed some phlebitis in the right upper arm, but it is also dissolving. The patient is ready to go home, except for he needs a LifeVest. I believe the insurance company is working on it. We are waiting nearly 4 days for the LifeVest, and there is no need for him to stay in the hospital because no LifeVest is available. It was not okayed by the insurance, and we had to keep this patient. This was discussed with the patient. The patient is also getting nervous. I discussed with the mother at length. Today, we will hopefully get it. Also, we will discuss with the home health care case manager. DIAGNOSES 1. Nonischemic cardiomyopathy. 2. Congestive heart failure, class III. The patient at this time is stable. However, the patient has a long way to go to improvement. I explained to him about the natural history of nonischemic cardiomyopathy. One of the causes is alcohol, and I told him he has to abstain from alcohol and any drug abuse except for the cardiac medications and the medical medications that we gave in the hospital and in the doctor's office. The patient was advised not to smoke. Job#: [id number]
[2017-07-17] VITALS (7 sets, daily range): BP systolic 112–133; BP diastolic 76–102
[2017-07-17] MEDS: NITROGLYCERIN 2% OINT 1 GM PKT TOP SCH ×4 (05:08→16:16)
[2017-07-17] MEDS: THIAMINE HCL 100 MG TAB PO SCH (08:11)
[2017-07-17] MEDS: POTASSIUM CHLORIDE 10 MEQ TABCR PO SCH ×2 (08:11→16:16)
[2017-07-17] MEDS: LOSARTAN POTASSIUM 100 MG TAB PO SCH ×2 (08:11→16:16)
[2017-07-17] MEDS: BENZONATATE 100 MG CAP PO SCH ×3 (08:11→21:51)
[2017-07-17] MEDS: ASPIRIN 81 MG ENTERIC COATED PO SCH (08:11)
[2017-07-17] MEDS: METOPROLOL TARTRATE 25 MG TAB PO SCH ×2 (08:11→16:16)
[2017-07-17] MEDS: CITALOPRAM HYDROBROMIDE 20 MG TAB PO SCH (08:11)
[2017-07-17] MEDS: FUROSEMIDE 40 MG TAB PO SCH (08:11)
[2017-07-17] MEDS: CLONIDINE HCL 0.1 MG TAB PO SCH ×2 (08:11→16:15)
[2017-07-17] MEDS: DOXYCYCLINE HYCLATE TABLET 100 MG TAB PO SCH ×2 (08:11→16:16)
--- NOTE | 2017-07-17 19:08 | Progress Note ---
DATE: July 16, 2017 DIAGNOSES 1. Acute congestive heart failure. 2. Nonischemic cardiomyopathy. 3. Coronary artery disease. LVEF about 20%. 4. Mild anxiety. The patient came with acute congestive heart failure, and the patient treated with anti CHF treatment. The patient improved. The patient underwent nuclear stress test and coronary angiogram performed and coronary arteries are normal. The patient has a nonischemic cardiomyopathy. The patient needs to be put on LifeVest. We have been waiting for the last 4 days, but we could not get a LifeVest yet. t. I discussed with patient case coordinator and also [employer]. Mr. Melgoza is working to get a LifeVest. t Any how the patient is stable cardiac white and the patient will continue present medications. I will discuss in detail later about his cardiac condition which I discussed already emphasizing to him about the status of his condition which is going to be for the next 3 months watched very carefully. If there is no increase in the ejection fraction, he will end up having permanent defibrillator. Job#: [id number] GH MTDFiona
[2017-07-18] VITALS (7 sets, daily range): BP systolic 104–139; BP diastolic 72–107
[2017-07-18] MEDS: NITROGLYCERIN 2% OINT 1 GM PKT TOP SCH ×4 (06:00→18:00)
[2017-07-18] MEDS: CLONIDINE HCL 0.1 MG TAB PO SCH (06:30)
[2017-07-18] MEDS: THIAMINE HCL 100 MG TAB PO SCH (09:55)
[2017-07-18] MEDS: CITALOPRAM HYDROBROMIDE 20 MG TAB PO SCH (09:55)
[2017-07-18] MEDS: BENZONATATE 100 MG CAP PO SCH ×3 (09:55→21:05)
[2017-07-18] MEDS: ASPIRIN 81 MG ENTERIC COATED PO SCH (09:55)
[2017-07-18] MEDS: FUROSEMIDE 40 MG TAB PO SCH (09:55)
[2017-07-18] MEDS: POTASSIUM CHLORIDE 10 MEQ TABCR PO SCH ×2 (09:55→17:45)
[2017-07-18] MEDS: DOXYCYCLINE HYCLATE TABLET 100 MG TAB PO SCH ×2 (09:55→17:45)
[2017-07-18] MEDS: LOSARTAN POTASSIUM 100 MG TAB PO SCH ×2 (09:55→17:45)
[2017-07-18] MEDS: METOPROLOL TARTRATE 25 MG TAB PO SCH ×2 (09:55→21:06)
--- NOTE | 2017-07-18 11:45 | Progress Note ---
DATE: July 18, 2017 CARDIOLOGY PROGRESS NOTE Patient was seen in the room. Patient is awake and alert. Patient is ambulating. Patient's ejection fraction is 20%. Patient's coronary arteries are normal. Patient came in with acute congestive heart failure. At this time, patient is waiting to have Life Vest. In the meantime, will continue all present medications. I am going to increase the potassium from 10 to 20 mg twice a day for the next 2 days. The potassium is still low. I am going to increase the metoprolol 25 mg to 50 mg p.o. b.i.d. and cut down on clonidine. Add spironolactone 25 mg once a day, which I will do changes in the HR. Patient is to go home with the following medications: 1. Aspirin 81 mg a day. 2. Metoprolol tartrate 50 mg p.o. twice a day. 3. Losartan 100 mg once a day. 4. Lasix 40 mg. 5. Spironolactone 25 mg once a day. 6. At this time, not adding any statin as the patient does not have coronary artery disease. Patient's laboratory evaluation shows at this time potassium is low at 3.3 on July 14, 2017. Patient's liver functions are normal. Albumin is 3.1 mg percent. Patient's lipid profile is not available. I am going to add one at this time. At this time, the patient in my point of view is waiting to have Life Vest done. Once he gets his Life Vest, he will go home. Patient cannot work for the next 2 weeks. I discussed in detail about this natural history of heart failure he has. He has got nonischemic cardiomyopathy. Job#: [id number] MARTINEZ
[2017-07-18 12:17] LABS: CHOL/HDL RATIO 4.8 (3.9-4.7); POTASSIUM 3.9 mmol/L (3.5-5.1)
[2017-07-18] MEDS ORDERED: METOPROLOL TARTRATE 25 MG TAB PO SCH (17:00)
[2017-07-19] VITALS: BP 105/83
[2017-07-19 04:00] VITALS: BP 122/93
[2017-07-19] MEDS: NITROGLYCERIN 2% OINT 1 GM PKT TOP SCH ×3 (06:00→12:00)
[2017-07-19 08:12] VITALS: BP 125/60
[2017-07-19] MEDS ORDERED: SPIRONOLACTONE 25 MG TAB PO SCH (09:00)
[2017-07-19] MEDS: CITALOPRAM HYDROBROMIDE 20 MG TAB PO SCH (10:00)
[2017-07-19] MEDS: FUROSEMIDE 40 MG TAB PO SCH (10:00)
[2017-07-19] MEDS: DOXYCYCLINE HYCLATE TABLET 100 MG TAB PO SCH ×2 (10:00→17:25)
[2017-07-19] MEDS: ASPIRIN 81 MG ENTERIC COATED PO SCH (10:00)
[2017-07-19] MEDS: THIAMINE HCL 100 MG TAB PO SCH (10:00)
[2017-07-19] MEDS: LOSARTAN POTASSIUM 100 MG TAB PO SCH ×2 (10:00→17:25)
[2017-07-19] MEDS: METOPROLOL TARTRATE 25 MG TAB PO SCH (10:00)
[2017-07-19] MEDS: BENZONATATE 100 MG CAP PO SCH ×2 (10:00→15:00)
[2017-07-19] MEDS: POTASSIUM CHLORIDE 10 MEQ TABCR PO SCH ×2 (10:00→17:25)
[2017-07-19] MEDS ORDERED: CELEXA20 MG PO ×2 (11:46→15:35)
[2017-07-19] MEDS ORDERED: VITAMIN B-1100 MG PO (11:46)
[2017-07-19] MEDS ORDERED: DOXYCYCLINE HY100 MG PO ×2 (11:46→15:49)
[2017-07-19] MEDS ORDERED: ASPIRIN EC81 MG PO (11:46)
[2017-07-19] MEDS ORDERED: ALDACTONE25 MG PO (11:46)
[2017-07-19] MEDS ORDERED: COZAAR100 MG PO (11:46)
[2017-07-19] MEDS ORDERED: FUROSEMIDE40 MG PO (11:46)
[2017-07-19] MEDS ORDERED: LOPRESSOR25 MG PO (11:46)
[2017-07-19 12:00] VITALS: BP 123/97
[2017-07-19] MEDS ORDERED: ASPIRIN81 MG PO (15:28)
[2017-07-19] MEDS ORDERED: METOPROLOL TART50 MG PO (15:28)
[2017-07-19] MEDS ORDERED: SPIRONOLACTONE25 MG PO (15:30)
[2017-07-19] MEDS ORDERED: LASIX40 MG PO (15:30)
[2017-07-19] MEDS ORDERED: LOSARTAN POTAS100 MG PO (15:32)
[2017-07-19] MEDS ORDERED: THIAMINE HCL50 MG PO (15:33)
--- NOTE | 2017-07-19 17:34 | Progress Note ---
DATE: July 19, 2017 CARDIOLOGY PROGRESS NOTE AND DISCHARGE CARDIOLOGY SUMMARY DIAGNOSIS 1. Nonischemic cardiomyopathy. 2. Acute congestive heart failure. Ejection fraction is 20%. 3. Mild anxiety and depression. 4. Obesity. PROCEDURE BY DR. TAPIA 1. Left heart catheterization. 2. Left ventricular angiogram. 3. Coronary angiogram. 4. 2-D echocardiogram. 5. Nuclear stress test. CARDIOLOGY DISCHARGE SUMMARY: Mr. Garret Quinn came with acute heart failure, was status anti-CHF treatment, and patient underwent angiogram. Coronary arteries are normal. LVEF is 20%. At this time, patient is going to go home with a LifeVest. I discussed with him the lifestyle which he has to follow and also diet which he has to continue, and also he has to follow with me also once a week for the next 2 weeks. The patient has got risk of developing sudden . That is the reason LifeVest was instituted. So, I am discharging him on the following medications: Aspirin 81 mg once a day, metoprolol tartrate 50 mg p.o. b.i.d., Lasix 40 mg once a day, spironolactone 25 mg p.o. b.i.d., losartan 100 mg p.o. b.i.d., thiamine hydrochloride 100 mg once a day, Celexa 20 mg p.o. daily. Patient to follow up in the office when discharged. Job#: [id number] EV
--- NOTE | 2017-07-19 19:46 | Discharge Summary ---
FINAL DIAGNOSES 1. Cngvy-kh-slidcrx systolic heart failure with ejection fraction 20%. 2. Newly diagnosed hypertension. ADMISSION HISTORY AND HOSPITAL COURSE: Mr. Quinn is a 42-year-old male who presented with shortness of breath. The patient possibly had upper respiratory tract infection that resulted in worsening shortness of breath. In the emergency room, the patient had a CT scan done which showed bilateral pleural effusion and cardiomegaly. Echo was done which showed ejection fraction of 20%. Nuclear test did not show any ischemia. The patient underwent cardiac catheterization which showed normal left coronary arteriogram, dominant right system and LV angiogram showed EF of 20% with 2+ to 3+ mitral regurgitation. He was started on losartan, metoprolol, spironolactone, Lasix. The patient improved gradually and has been doing well. Cardiac vest has been ordered as the patient has ejection fraction less than 20%. The patient has received the vest and he will be discharged home to follow up with Dr. Blackmon and primary care physician. CORINNA KIM MD Job#: [id number]
== END 2017-07-19 17:28 | disposition home or self-care (01) | DRG 287 ==
LOC: ER 18:47 → ERHOLD 22:05 → MED/SURG 23:02
PROVIDERS: ADMIT Internal Medicine; ATTEND Internal Medicine
PROC: 4A023N7 Measurement of Cardiac Sampling and Pressure, Left Heart, Percutaneous Approach (ICD-10-PCS; principal; 2017-07-13)
PROC: B2151ZZ Fluoroscopy of Left Heart using Low Osmolar Contrast (ICD-10-PCS; 2017-07-13)
PROC: B2111ZZ Fluoroscopy of Multiple Coronary Arteries using Low Osmolar Contrast (ICD-10-PCS; 2017-07-13)
DX: I11.0 Hypertensive heart disease with heart failure (principal); I43 Cardiomyopathy in diseases classified elsewhere; I50.23 Acute on chronic systolic (congestive) heart failure; I05.1 Rheumatic mitral insufficiency; J98.8 Other specified respiratory disorders; I50.1 Left ventricular failure, unspecified; F41.9 Anxiety disorder, unspecified; F32.9 Major depressive disorder, single episode, unspecified; E66.9 Obesity, unspecified; Z68.31 Body mass index [BMI] 31.0-31.9, adult; I25.10 Atherosclerotic heart disease of native coronary artery without angina pectoris
CPT/HCPCS: 36140; 36415; 71020; 71260; 77002; 78452; 80048; 80053; 80061; 80307; 81001; 82150; 82550; 82553; 83518; 83690; 83735; 83880; 84132; 84443; 84484; 85025; 85379; 85610; 85730; 87040; 87070; 87086; 87205; 87400; 93005; 93017; 93306; 93452; 93458; 93971; 99284; A9502; J0456; J0692; J0696; J1650; J1940; J2001; J2250; J3411; J7030; J7050; Q9967

== ENCOUNTER 2017-08-20 19:37 | Inpatient (IN) | payer BC ==
[~2017-08-20] VITALS: Ht 170.2 cm; Wt 90.3 kg
[~2017-08-20 19:37] MED LIST changes: +ALDACTONE25 MG PO; +ASPIRIN EC81 MG PO; +ASPIRIN81 MG PO; +COZAAR100 MG PO; +DOXYCYCLINE HY100 MG PO; +FUROSEMIDE40 MG PO; +LASIX40 MG PO; +LOPRESSOR25 MG PO; +LOSARTAN POTAS100 MG PO; +METOPROLOL TART50 MG PO; +SPIRONOLACTONE25 MG PO; +THIAMINE HCL50 MG PO; +VITAMIN B-1100 MG PO
--- OUTSIDE RECORDS SUMMARY | 2017-08-20 19:40 | XMS REPORT ---
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 Allergies, Adverse Reactions, Alerts This patient has no known allergies or adverse reactions. Medications This patient has no known medications. Results Test Description Test Time Test Comments Text Results Atomic Results Result Comments CHEST 2 VIEWS [place] [address] Patient Name: ROCIO KHAN MR #: [id number] : 1975 Age/Sex: 42/M Req #: [id number] Adm Physician: CORINNA KIM MD Ordered by: KARTIK RAMSEY MD Report #: [id number] Location: MED/SURG Room/Bed: [facility] _ Procedure: [id number] DX/CHEST 2 VIEWS Exam Date: 07/11/17 Exam Time: 0608 REPORT STATUS: Signed EXAMINATION: CHEST 2 VIEWS INDICATION: Cough. COMPARISON: 07/06/2017 FINDINGS: TUBES and LINES: None. LUNGS: Lungs are not well inflated. Right lower lobe airspace disease . PLEURA: Trace of right pleural effusion present HEART AND MEDIASTINUM: Cardiac size is moderately enlarged. BONES AND SOFT TISSUES: No acute osseous lesion. Soft tissues are unremarkable. UPPER ABDOMEN: No free air under the diaphragm. IMPRESSION: Findings are suspicious for developing pneumonia in the right lower lobe with small pleural effusion. Signed by: Dr. Frandy Rios M.D. on 07/11/2017 6:22 AM Dictated By: FRANDY LOPEZ MD 1 Transcribed By: EVAN on 07/11/17621 COPY TO: KARTIK RAMSEY MD Stress Test - Treadmill ONLY [place] [address] Patient Name : ROCIO KHAN MR #: [id number] : 1975 Age/Sex: 42/M Adm Physician : CORINNA KIM MD Admit Date : 07/06/17 Location : MED/SURG Room/Bed : [facility] REPORT: Cardiology Report DATE OF STUDY: July 10, 2017 NUCLEAR GATED MYOCARDIAL PERFUSION SCAN Nuclear gated myocardial perfusion scan performed as per protocol at nuclear medicine lab. I supervised the nuclear stress test and interpreted the nuclear stress test. Lexiscan was injected 0.4 mg intravenously. Myoview was injected 10.1 millicuries per resting protocol and 30.8 millicuries per stress protocol. Left ventricular severe global hypokinesia. Ejection fraction 50%. No evidence of ischemia or scar noted. It appears to be a dilated, nonischemic cardiomyopathy. DT : 07/12/2017 11:29 Job#: [id number] Signature Date Dictated By: ANJELICA TAPIA MD Transcribed By: ABEL on 07/12/17 < Electronically signed by ANJELICA TAPIA MD><<Signature on File>>07/13/17 1246 COPY TO: CT CHEST W [address] [address] Patient Name: ROCIO KHAN MR #: [id number] : 1975 Age/Sex: 42/M Req #: [id number] Adm Physician: Ordered by: DAWIT RIVERA MD Report #: [id number] Location: ER Room/Bed: Procedure: [id number] CT/CT CHEST W Exam Date: 07/06/17 Exam Time: 2023 REPORT STATUS: Signed EXAM: CT Chest WITH contrast (PE protocol) 2016 8:12 PM INDICATION: S PE PROTOCOL, SOB POSITIVE D-DIMER COMPARISON: None TECHNIQUE: Chest was scanned utilizing a multidetector helical scanner from the lung apex through the level of the adrenal glands without administration of IV contrast. Coronal and sagittal reformations were obtained. PE protocol was performed. IV CONTRAST: 100 mL of Isovue 370 COMPLICATIONS: None RADIATION DOSE: Total DLP: 565.4 mGy*cm Estimated effective dose: (DLP x 0.014 x size factor) mSv CTDIvol has been reviewed. It is below the limits set by the Radiation Protocol Committee (RPC). FINDINGS: LINES/ TUBES: None. LUNGS AND AIRWAYS : Good contrast bolus. No pulmonary emboli. Focal patchy groundglass opacity in the right lower lobe. Airways are normal. PLEURA: Moderate right and small left pleural effusion. HEART AND MEDIASTINUM: The thyroid gland is normal. No mediastinal, hilar or axillary lymphadenopathy. Multiple small nonspecific mediastinal lymph nodes. The heart is mildly enlarged. There is no pericardial effusion. Residual thymic tissues. UPPER ABDOMEN: Reflux of contrast into the IVC and hepatic veins suggesting elevated right heart pressure. BONES: The visualized bony thorax is within normal limits. SOFT TISSUES: Unremarkable. IMPRESSION: 1. No pulmonary emboli. 2. Mild cardiomegaly. Reflux of contrast into hepatic veins , indicating elevated right heart pressure 3. Multiple small nonspecific mediastinal lymph nodes. 4. Moderate right and small left pleural effusions. 5. Focal nonspecific patchy groundglass opacities in the right lower lobe. This may represent focal pneumonia. Signed by: Dr. Helga Centeno M.D. on 07/06/2017 9:02 PM Dictated By: HELGA CENTENO MD 01 Transcribed By: EVAN on 07/06/172101 COPY TO: DAWIT RIVERA MD CHEST [address] [facility] [address] [place] [address] Patient Name: ROCIO KHAN MR #: [id number] : 1975 Age/Sex: 42/M Req #: [id number] Adm Physician: Ordered by: DAWIT RIVERA MD Report #: [id number] Location: ER Room/Bed: Procedure: [id number] DX/CHEST 2 VIEWS Exam Date: 07/06/17 Exam Time: 1949 REPORT STATUS: Signed CHEST 2 VIEWS, Technique: CHEST 2 VIEWS Comparison: None Clinical history: S SOB/NELSON X 2 WEEKS, COUGH S [id number] S 1950 DISCUSSION: Mildly enlarged cardiac silhouette. No edema or consolidation. No pleural effusion or pneumothorax. IMPRESSION: Mildly enlarged cardiac silhouette. Otherwise negative. Signed by: Dr Cesar Zaragoza MD on 07/06/2017 9:12 PM Dictated By: CESAR ZARAGOZA MD 11 Transcribed By: EVAN on 07/06/172111 COPY TO: DAWIT RIVERA MD
[2017-08-20 19:57] LABS: BASOPHILS # (AUTO) 0.1 (0.0-0.1); BASOPHILS % 0.5 % (0.0-1.0); EOSINOPHILS # (AUTO) 0.1 (0.0-0.4); EOSINOPHILS % 0.4 % (0.0-6.0); HEMATOCRIT 49.6 % (38.2-49.6); HEMOGLOBIN 16.4 g/dL (14.0-18.0); LYMPHOCYTES # (AUTO) 2.7 (1.0-3.2); LYMPHOCYTES % 19.3 % (18.0-39.1); MEAN CORPUSCULAR HGB CONC 33.1 g/dL (31-35); MEAN CORPUSCULAR VOLUME 84.8 fL (81-99); MONOCYTES # (AUTO) 1.9 (0.2-0.8); MONOCYTES % 13.4 % (4.4-11.3); NEUTROPHILS # (AUTO) 9.4 (2.1-6.9); PLATELET COUNT 327 x10e3/uL (140-360); RED BLOOD COUNT 5.85 x10e6/uL (4.3-5.7); RED CELL DISTRIBUTION WIDTH 13.3 % (11.7-14.4)
[2017-08-20 20:04] LABS: CLARITY,URINE CLEAR (CLEAR); COLOR,URINE YELLOW (YELLOW); KETONES,URINE NEGATIVE (NEGATIVE); LEUKOCYTE ESTERASE ,URINE NEGATIVE (NEGATIVE); NITRITE,URINE NEGATIVE (NEGATIVE); URINE UROBILINOGEN 1 mg/dL (0.2 - 1)
[2017-08-20 20:05] LABS: BILIRUBIN,URINE 1+ (NEGATIVE); PROTEIN,URINE DIPSTICK 1+ (NEGATIVE)
[2017-08-20 20:06] LABS: INR 1.5
[2017-08-20 20:07] LABS: PARTIAL THROMBOPLASTIN TIME 31.3 seconds (23.8-35.5)
[2017-08-20 20:16] LABS: ALANINE AMINOTRANSFERASE 16 IU/L (0-55); ALBUMIN 3.6 g/dL (3.5-5.0); ALBUMIN/GLOBULIN RATIO 0.8 (0.8-2.0); ALKALINE PHOSPHATASE 59 IU/L (40-150); ANION GAP 15.7 mmol/L (8-16); BLOOD UREA NITROGEN 11 mg/dL (7-26); BUN/CREATININE RATIO 14 (6-25); CALCIUM 9.1 mg/dL (8.4-10.2); CARBON DIOXIDE 20 mmol/L (22-29); CHLORIDE 102 mmol/L (98-107); CREATINE KINASE 29 IU/L (30-200); CREATININE, SERUM 0.77 mg/dL (0.72-1.25); EST GLOMERULAR FILTRATION RATE > 60 ML/MIN (60-); GLUCOSE 110 mg/dL (74-118); POTASSIUM 3.7 mmol/L (3.5-5.1); SODIUM 134 mmol/L (136-145)
[2017-08-20] MEDS ORDERED: ENOXAPARIN SODIUM INJ 100 MG/ML SYR SC SCH (21:00)
[2017-08-20] MEDS ORDERED: SODIUM CHLORIDE FLUSH 10 ML SYR INJ PRN (21:00)
[2017-08-20] MEDS ORDERED: METOPROLOL TARTRATE INJ 1 MG/ML VIAL IV ONE (21:30)
[2017-08-20] MEDS ORDERED: ENOXAPARIN SODIUM INJ 100 MG/ML SYR SC ONE (23:36)
[2017-08-20] MEDS ORDERED: METOPROLOL TARTRATE INJ 1 MG/ML VIAL ONE (23:36)
[2017-08-20] MEDS ORDERED: FUROSEMIDE INJ 10 MG/ML 4 ML VIAL ONE (23:37)
[2017-08-21] MEDS ORDERED: MORPHINE SULFATE 2 MG/ML SYR ONE ×3 (00:54→14:05)
[2017-08-21] MEDS: MORPHINE SULFATE 4 MG/ML SYR IV PRN ×3 (00:54→14:09)
[2017-08-21] MEDS: ONDANSETRON HCL INJ 2 MG/ML VIAL IV PRN ×2 (00:54→06:18)
[2017-08-21 01:56] VITALS: BP 112/77
[2017-08-21] MEDS ORDERED: PNEUMOCOCCAL VACCINE POLYVALENT 23 MCG/0.5 ML VIAL IM PRN (02:45)
[2017-08-21] MEDS ORDERED: INFLUENZA VIRUS VAC SPLIT INJ 0.5 ML SYR IM PRN (02:45)
[2017-08-21] MEDS ORDERED: AZITHROMYCIN250 MG PO (03:19)
[2017-08-21 04:00] VITALS: BP 115/79
--- NOTE | 2017-08-21 06:30 | Diagnostic Imaging Report ---
CHEST SINGLE (PORTABLE), 08/21/2017 8:00 AM Technique: CHEST SINGLE (PORTABLE) Comparison: 07/11/2017 Clinical history: Evaluate CHF Findings: See Impression Impression: 1. Stable mildly enlarged cardiac silhouette. 2. Bilateral opacities, favor edema with basilar atelectasis and small right greater than left effusions. Signed by: Dr Dottie Zaragoza MD on 08/21/2017 6:26 AM
[2017-08-21 06:40] LABS: CHOL/HDL RATIO 5.2 (3.9-4.7)
[2017-08-21 06:52] LABS: CREATINE KINASE MB 0.4 ng/mL (0.00-5.00)
[2017-08-21 07:49] VITALS: BP 125/85
[2017-08-21] MEDS: FUROSEMIDE INJ 10 MG/ML 4 ML VIAL IV SCH (08:45)
[2017-08-21] MEDS: ENOXAPARIN SODIUM INJ 100 MG/ML SYR SC SCH (08:45)
[2017-08-21] MEDS: ASPIRIN 325 MG TAB EC PO SCH (09:00)
[2017-08-21] MEDS ORDERED: AZITHROMYCIN 250 MG TAB PO ONE (12:00)
--- NOTE | 2017-08-21 13:19 | Diagnostic Imaging Report ---
PROCEDURE:US CHEST (INCL MEDIASTINUM) COMPARISON:None. INDICATIONS:Effusion FINDINGS:Transverse and longitudinal images of the chest were performed. Moderate amount of fluid is noted in the right pleural space. Trace fluid is noted in the left pleural space. CONCLUSION: 1. Moderate right pleural effusion. Trace left pleural effusion. Vito Drake M.D. Dictated by: Vito Drake M.D. on 08/21/2017 at 13:28 Electronically approved by: Vito Drake M.D. on 08/21/2017 at 13:28
--- NOTE | 2017-08-21 13:31 | Consultation ---
DATE OF CONSULTATION: PULMONARY CONSULTATION This is a patient of Dr. Zamora, Dr. Jayden Pang, Dr. Blackmon. This charming, but unfortunate, 42-year-old gentleman was admitted with chest pain and shortness of breath. He had been seen earlier in the day complaining of cough productive of grayish sputum mixed with blood. He was also found to have a right pleural effusion on chest x-ray. The patient was attempting to continue to work and wished to delay therapy until , when he had the day off, to see Dr. Blackmon. Thoracentesis was arranged. He was started on antibiotics but apparently developed chest pain on the left side. He was admitted through the emergency room. He has a history of alcohol use in the past, but he quit. His recent ejection fraction was only 20%. HE HAS NO ALLERGIES. Current medications have included aspirin, Zithromax, Celexa, Lasix, losartan, metoprolol. No surgical history. Family history is noncontributory. He does have a history of hypertension. He has had essentially negative catheterization in the past, according to my recollection. He was discharged from the hospital on the 19 of July. Cardiac catheterization showed normal left coronary, dominant right. LV angiogram showed ejection fraction of 20% and mitral regurgitation. He has been using a vest. PHYSICAL EXAMINATION VITALS: Temperature 97.9, pulse 109 and regular, respirations 18, blood pressure 129/80. HEENT: Head is normocephalic and atraumatic. LUNGS: Bilateral rales. HEART: Regular rhythm. ABDOMEN: Nontender. EXTREMITIES: Not edematous. IMPRESSION: Atypical pain. He has been anticoagulated by the emergency room physician. We will order a followup CT angiogram. The D-dimer is elevated at 6079. Patient seems low risk for lung cancer and high risk for complications in view of his low ejection fraction. Will attempt to defer bronchoscopy until bleeding becomes more of an issue. Will consider thoracentesis, although he has received Lovenox today. The patient's long-term prognosis is poor. He seems to have limited understanding. Thank you for this kind referral. Job#: [id number]
[2017-08-21 15:11] LABS: CREATINE KINASE MB 0.3 ng/mL (0.00-5.00)
[2017-08-21 15:56] VITALS: BP 113/75
[2017-08-21] MEDS: METOCLOPRAMIDE HCL 10 MG/2ML VIAL IV SCH ×2 (17:00→21:04)
[2017-08-21] MEDS ORDERED: SPIRONOLACTONE 25 MG TAB PO SCH (18:00)
[2017-08-21 20:00] VITALS: BP 108/70
--- NOTE | 2017-08-21 20:23 | Diagnostic Imaging Report ---
PROCEDURE: CT scan of the chest WITH intravenous contrast, using standard protocol. TECHNIQUE: The chest was scanned utilizing a multidetector helical scanner from the lung apex through the level of the adrenal glands after the IV administration of 100 cc of Isovue 370. Coronal and sagittal multiplanar reformations were obtained. COMPARISON: [facility], CT, CT CHEST W, 07/06/2017, 20:24. INDICATIONS: LEFT SIDE CHEST PAIN FINDINGS: Lines/tubes: None. Lungs and Airways: Worsening compressive atelectasis of the right upper and right lower lobe. Interval development of groundglass opacities coalescing into a focal consolidation in the anterior left upper lobe/lingula and to a lesser degree left lower lobe (series 3, images 58 and 76). No pulmonary nodules. Airways are clear, without endobronchial lesions. Pleura: Interval increase in size of right-sided pleural effusion, which is now moderate to large. Interval decrease in size of previously visualized left pleural effusion, which is now trace to small. Heart and mediastinum: Thyroid is unremarkable. Stable cardiomegaly. No pericardial effusion. Aorta is non-aneurysmal. Main pulmonary artery is normal in caliber. Lymph nodes: No mediastinal, hilar, or axillary adenopathy. Abdomen: Limited contrast-enhanced views of the upper abdomen show no abnormality within the visualized liver, spleen, pancreas, or left kidney. 7 mm hypodense lesion in the anterior limb of the left adrenal gland (series 2 image 113), which measures less than 10 Hounsfield units even on this postcontrast exam, consistent with a benign, lipid rich adenoma. Right adrenal gland is unremarkable. Bones: No aggressive lytic lesions. Soft tissues are unremarkable. IMPRESSION: 1. no findings in the anterior left upper lobe/lingula and left lower lobe likely represent multifocal pneumonia. 2. Interval increase in size of right-sided pleural effusion, which is now moderate to large, with increased compressive atelectasis of the right upper and right lower lobes. 3. Interval decrease in size of previously visualized left pleural effusion, which is now trace to small. Vito Drake M.D. Dictated by: Vito Drake M.D. on 08/21/2017 at 20:23 Electronically approved by: Vito Drake M.D. on 08/21/2017 at 20:23
[2017-08-21] MEDS: SPIRONOLACTONE 25 MG TAB PO SCH (21:04)
[2017-08-21] MEDS ORDERED: IOPAMIDOL 370 MG/ML 200 ML INFUS..BTL INJ ONE (22:24)
[2017-08-21] MEDS ORDERED: SODIUM CHLORIDE 0.9% 50ML 50 ML ONE (22:40)
[2017-08-22] VITALS (8 sets, daily range): BP systolic 100–154; BP diastolic 64–79
[2017-08-22 07:19] LABS: BASOPHILS # (AUTO) 0.1 (0.0-0.1); BASOPHILS % 0.4 % (0.0-1.0); EOSINOPHILS # (AUTO) 0.1 (0.0-0.4); EOSINOPHILS % 0.5 % (0.0-6.0); HEMATOCRIT 49.8 % (38.2-49.6); HEMOGLOBIN 16.6 g/dL (14.0-18.0); LYMPHOCYTES # (AUTO) 2.1 (1.0-3.2); MEAN CORPUSCULAR HEMOGLOBIN 28.3 pg (28-32); MEAN CORPUSCULAR HGB CONC 33.3 g/dL (31-35); MEAN CORPUSCULAR VOLUME 84.8 fL (81-99); MONOCYTES # (AUTO) 2.1 (0.2-0.8); MONOCYTES % 15.4 % (4.4-11.3); NEUTROPHILS % 67.2 % (38.7-80.0); PLATELET COUNT 333 x10e3/uL (140-360); RED BLOOD COUNT 5.87 x10e6/uL (4.3-5.7); RED CELL DISTRIBUTION WIDTH 13.6 % (11.7-14.4)
[2017-08-22 07:45] LABS: ANION GAP 15.2 mmol/L (8-16); BLOOD UREA NITROGEN 10 mg/dL (7-26); BUN/CREATININE RATIO 12 (6-25); CALCIUM 8.9 mg/dL (8.4-10.2); CARBON DIOXIDE 29 mmol/L (22-29); CHLORIDE 95 mmol/L (98-107); CREATININE, SERUM 0.84 mg/dL (0.72-1.25); EST GLOMERULAR FILTRATION RATE > 60 ML/MIN (60-); GLUCOSE 100 mg/dL (74-118); MAGNESIUM 1.3 MG/DL (1.3-2.1); POTASSIUM 3.2 mmol/L (3.5-5.1); SODIUM 136 mmol/L (136-145)
[2017-08-22 08:17] LABS: PLATELET ESTIMATE ADEQUATE; PLATELET MORPHOLOGY COMMENT NORMAL; RBC MORPHOLOGY COMMENT NORMAL
[2017-08-22] MEDS: ASPIRIN 325 MG TAB EC PO SCH (09:00)
[2017-08-22] MEDS: SPIRONOLACTONE 25 MG TAB PO SCH ×2 (09:00→21:03)
[2017-08-22] MEDS: METOCLOPRAMIDE HCL 10 MG/2ML VIAL IV SCH ×4 (09:01→21:03)
[2017-08-22] MEDS: FUROSEMIDE INJ 10 MG/ML 4 ML VIAL IV SCH (09:01)
[2017-08-22] MEDS ORDERED: POTASSIUM CHLORIDE 20 MEQ TAB CR PO ONE (09:15)
[2017-08-22] MEDS ORDERED: POTASSIUM CHLORIDE 20MEQ/100ML 200 ML IV ONE (09:15)
[2017-08-22] MEDS ORDERED: SODIUM CHLORIDE 0.9% 500ML 500 ML ONE (09:23)
--- NOTE | 2017-08-22 10:43 | Consultation ---
CARDIOLOGY CONSULTATION DATE OF CONSULTATION: August 21, 2017 The patient was seen in the room, examined, reviewed the chart and discussed the patient along with father and mother. DIAGNOSES: 1. Nonischemic cardiomyopathy. 2. Bqmve-gn-qglwwro congestive heart failure. 3. Bilateral pleural effusion, moderate, right, small, left side. 4. Hyperbilirubinemia. Mr. Kai Combs is a pleasant 42-year-old gentleman admitted at this time with shortness of breath and orthopnea. He is a known patient with nonischemic cardiomyopathy. He was admitted to this hospital the early part of July of this year. His coronary arteries are normal. Ejection fraction less than 20%. The patient on LifeVest. He comes with orthopnea and acute onset of shortness of breath suggestive of ymybo-pn-qreiwfh congestive heart failure. The patient's BNP is 1679 mmHg. Renal function is normal. Bilirubin 3.1 and troponin is negative. Lungs with bilateral breath sounds decreased. There is a soft S4 present. No significant murmur noted. No pericardial rub that I could hear at this time. No pedal edema. According to him, he lost 5 pounds, but, however, he definitely is having CHF. His condition is non ischemic cardiomyopathy. The patient is also working in spite of telling that he went to work, but I also cleared him, but. his main issue is for nonischemic cardiomyopathy probably, the cause unknown at this time. It may be alcoholic or familial. There is no family history of cardiomyopathy. At this time, will continue all of his present medications. I added spironolactone and increased Lasix 40 mg once a day. The patient is staying in the hospital for 3 days. Once improved, he can go home. I had a long discussion with the patient and the patient's family at this time. He is to take at least 1-2 weeks rest at home. I will follow him very closely. Will continue medical treatment. Thank you for the consultation. Job#: [id number] GH MTDFiona
--- NOTE | 2017-08-22 13:07 | Diagnostic Imaging Report ---
PROCEDURE: ULTRASOUND GUIDED THORACENTESIS COMPARISON: CT chest with contrast 08/21/2017 Preprocedure diagnosis: Pleural Effusion Post procedure diagnosis: Pleural effusion Waistline Joiner Lockstitch: Wily Bergeron M.D. Sedation/anesthesia: None Additional medications: Lidocaine 1% for local anesthesia. Complications: No immediate Estimated blood loss: Minimal Blood products administered: None Specimens: 1450 cc naeem-colored pleural fluid Implant/grafts: None Condition at completion of procedure: Stable Disposition: To radiology for post procedure chest x-ray FINDINGS: After informed consent was obtained, the patient was placed in the sitting position and preliminary ultrasound of the posterior chest identified a safe route into the right pleural effusion. The overlying skin was prepped and draped in usual sterile fashion. Lidocaine 1% was used for local anesthesia. Under ultrasound guidance, a 5 Afghan Yueh needle was advanced into the pleural fluid, the catheter was advanced off the needle, and 1450 cc naeem colored fluid were aspirated. The patient tolerated the procedure well and there were no immediate post-procedural complications. A post-thoracentesis chest radiograph will be obtained. CONCLUSION: Uncomplicated ultrasound-guided right thoracentesis with removal of 1450 cc naeem-colored fluid. Specimen was submitted for laboratory analysis as requested by the referring clinical team. Dictated by: Wily Bergeron M.D. on 08/22/2017 at 13:06 Electronically approved by: Wily Bergeron M.D. on 08/22/2017 at 13:06
--- NOTE | 2017-08-22 13:48 | Diagnostic Imaging Report ---
PROCEDURE:X-RAY CHEST, ONE VIEW COMPARISON:08/21/2017. INDICATIONS:POST THORACENTESIS FINDINGS: Interval right thoracentesis with near-complete evacuation of the right pleural effusion. No pneumothorax. Small left pleural effusion. Stable mild enlargement of the cardiac silhouette with central opacities compatible with pulmonary edema. Subsegmental atelectasis in the right lower lobe. CONCLUSION: Interval right thoracentesis with near-complete evacuation of large right pleural effusion. No pneumothorax. Dictated by: Wily Bergeron M.D. on 08/22/2017 at 13:48 Electronically approved by: Wily Bergeron M.D. on 08/22/2017 at 13:48
[2017-08-22] MEDS: AZITHROMYCIN 250 MG TAB PO SCH (14:28)
[2017-08-22] MEDS ORDERED: DIGOXIN INJ 0.25 MG/ML 2 ML AMP IV NR (15:00)
[2017-08-22] MEDS ORDERED: MORPHINE SULFATE 2 MG/ML SYR ONE (17:12)
[2017-08-22] MEDS: MORPHINE SULFATE 4 MG/ML SYR IV PRN (17:24)
[2017-08-22] MEDS ORDERED: LISINOPRIL 2.5 MG TAB PO ONE (17:45)
[2017-08-22] MEDS ORDERED: CARVEDILOL 12.5 MG TAB PO ONE (17:45)
[2017-08-22 18:31] LABS: BODY FLUID APPEARANCE CLOUDY; BODY FLUID COLOR YELLOW; BODY FLUID TYPE PLEURAL
[2017-08-22 18:32] LABS: RBC,BODY FLUID 8187 cells/uL; WBC,BODY FLUID 1020 cells/uL
[2017-08-22 18:36] LABS: EOSINOPHILS,BODY FLUID 1 %; LYMPHOCYTES,BODY FLUID 54 %; MONO/MACROPHG,BODY FLUID 17 %; NEUTROPHILS,BODY FLUID 28 %
[2017-08-22] MEDS: ENOXAPARIN SODIUM INJ 100 MG/ML SYR SC SCH (21:03)
[2017-08-22] MEDS: DIGOXIN 0.25 MG TAB PO SCH (21:03)
[2017-08-23] VITALS (8 sets, daily range): BP systolic 84–98; BP diastolic 50–64
[2017-08-23 06:19] LABS: BASOPHILS % 0.3 % (0.0-1.0); EOSINOPHILS # (AUTO) 0.1 (0.0-0.4); HEMATOCRIT 45.9 % (38.2-49.6); HEMOGLOBIN 14.9 g/dL (14.0-18.0); LYMPHOCYTES # (AUTO) 2.2 (1.0-3.2); LYMPHOCYTES % 18.1 % (18.0-39.1); MEAN CORPUSCULAR HEMOGLOBIN 27.6 pg (28-32); MEAN CORPUSCULAR HGB CONC 32.5 g/dL (31-35); MONOCYTES # (AUTO) 2.1 (0.2-0.8); MONOCYTES % 17.2 % (4.4-11.3); NEUTROPHILS # (AUTO) 7.5 (2.1-6.9); NEUTROPHILS % 62.8 % (38.7-80.0); PLATELET COUNT 312 x10e3/uL (140-360); RED CELL DISTRIBUTION WIDTH 13.5 % (11.7-14.4)
[2017-08-23 06:45] LABS: ANION GAP 13.5 mmol/L (8-16); BLOOD UREA NITROGEN 12 mg/dL (7-26); BUN/CREATININE RATIO 15 (6-25); CALCIUM 8.6 mg/dL (8.4-10.2); CARBON DIOXIDE 28 mmol/L (22-29); CHLORIDE 96 mmol/L (98-107); CREATININE, SERUM 0.78 mg/dL (0.72-1.25); EST GLOMERULAR FILTRATION RATE > 60 ML/MIN (60-); GLUCOSE 106 mg/dL (74-118); MAGNESIUM 1.3 MG/DL (1.3-2.1); POTASSIUM 3.5 mmol/L (3.5-5.1); SODIUM 134 mmol/L (136-145)
[2017-08-23] MEDS: DIGOXIN 0.25 MG TAB PO SCH (07:15)
[2017-08-23 07:51] LABS: LYMPHOCYTES % (MANUAL) 11 % (19-48); MONOCYTES % (MANUAL) 11 % (3.4-9.0); NEUTROPHILS % (MANUAL) 73 % (40-74)
[2017-08-23 07:52] LABS: ANISOCYTOSIS SLIGHT; PLATELET ESTIMATE ADEQUATE; PLATELET MORPHOLOGY COMMENT NORMAL; POIKILOCYTOSIS SLIGHT; RBC MORPHOLOGY COMMENT NORMAL
[2017-08-23] MEDS: AZITHROMYCIN 250 MG TAB PO SCH (08:54)
[2017-08-23] MEDS: METOCLOPRAMIDE HCL 10 MG/2ML VIAL IV SCH ×4 (08:54→21:15)
[2017-08-23] MEDS: FUROSEMIDE INJ 10 MG/ML 4 ML VIAL IV SCH (08:54)
[2017-08-23] MEDS: SPIRONOLACTONE 25 MG TAB PO SCH (08:54)
[2017-08-23] MEDS: ENOXAPARIN SODIUM INJ 100 MG/ML SYR SC SCH ×2 (08:54→21:15)
[2017-08-23] MEDS: ASPIRIN 325 MG TAB EC PO SCH (08:54)
[2017-08-23] MEDS: POTASSIUM CHLORIDE 20 MEQ TAB CR PO SCH (08:55)
[2017-08-23] MEDS: LISINOPRIL 2.5 MG TAB PO SCH (08:55)
[2017-08-23] MEDS: CARVEDILOL 12.5 MG TAB PO SCH ×2 (08:55→17:30)
--- NOTE | 2017-08-23 10:40 | Progress Note ---
DATE: August 22, 2017 CARDIOLOGY PROGRESS NOTE I discussed with the mother, who was at bedside, and also the patient. Patient's diagnoses are of 1. Hefzt-wq-ejhpskz congestive heart failure. 2. Nonischemic cardiomyopathy. Patient's echo EF is about less than 20%. Left ventricular enlargement of moderate degree present. Severe mitral regurgitation noted. Normal pulmonary artery pressure. Patient had 1450 mL of naeem-colored fluid withdrawn from the right pleural cavity. Patient feels better but still complains of chest pain. I could not see any pleural rub or pericardial rub at this time. He is stable. However, the heart rate is 115 per minute. His beta pipo and also lisinopril were held because of low blood pressure. I am starting on Coreg 6.125 mg p.o. b.i.d. and lisinopril 5 mg once a day and already started digitalizing the patient. Patient on Lasix. Also, patient on spironolactone. Patient needs to stay in the hospital the next couple of days for his heart failure to settle down. I discussed with the mother and also with him that I am going to refer him to a heart failure specialist at [facility] if his insurance allows him to go to a heart failure doctor. If he cannot go to [facility], will try to send to [facility]. I am going to verify the insurance tomorrow. According to the insurance guidelines, probably will refer to the appropriate hospital. Probably will get a second opinion about the treatment of his nonischemic cardiomyopathy. I did tell him that probably it is better to take off for a couple of weeks, not to go to work, and at this time he is coming in definitely with acute congestive heart failure with chronic exacerbation of his heart failure, and probably he needs to be on medical treatment and also he is to take the medication properly. I will discuss with him again tomorrow. Job#: [id number] EV
[2017-08-23] MEDS: MORPHINE SULFATE 4 MG/ML SYR IV PRN (21:16)
[2017-08-23] MEDS ORDERED: MORPHINE SULFATE 2 MG/ML SYR ONE (21:23)
[2017-08-24] VITALS: BP 102/64
[2017-08-24] MEDS: SPIRONOLACTONE 25 MG TAB PO SCH ×2 (00:19→09:22)
[2017-08-24 04:00] VITALS: BP 103/63
[2017-08-24 08:00] VITALS: BP 108/66
[2017-08-24] MEDS: METOCLOPRAMIDE HCL 10 MG/2ML VIAL IV SCH ×2 (08:27→12:00)
[2017-08-24 08:30] VITALS: BP 108/66
[2017-08-24] MEDS ORDERED: FUROSEMIDE INJ 10 MG/ML 4 ML VIAL IV SCH (09:00)
[2017-08-24] MEDS ORDERED: DIGOXIN 0.25 MG TAB PO SCH (09:00)
[2017-08-24] MEDS: ASPIRIN 325 MG TAB EC PO SCH (09:22)
[2017-08-24] MEDS: CARVEDILOL 12.5 MG TAB PO SCH (09:23)
[2017-08-24] MEDS: LISINOPRIL 2.5 MG TAB PO SCH (09:23)
[2017-08-24] MEDS: POTASSIUM CHLORIDE 20 MEQ TAB CR PO SCH (09:23)
[2017-08-24] MEDS: AZITHROMYCIN 250 MG TAB PO SCH (09:23)
[2017-08-24] MEDS: ENOXAPARIN SODIUM INJ 100 MG/ML SYR SC SCH (09:24)
[2017-08-24 10:06] LABS: BASOPHILS # (AUTO) 0.1 (0.0-0.1); BASOPHILS % 0.7 % (0.0-1.0); EOSINOPHILS # (AUTO) 0.4 (0.0-0.4); EOSINOPHILS % 3.6 % (0.0-6.0); HEMATOCRIT 47.5 % (38.2-49.6); HEMOGLOBIN 15.9 g/dL (14.0-18.0); LYMPHOCYTES # (AUTO) 2.2 (1.0-3.2); LYMPHOCYTES % 22.6 % (18.0-39.1); MEAN CORPUSCULAR HEMOGLOBIN 27.9 pg (28-32); MEAN CORPUSCULAR HGB CONC 33.5 g/dL (31-35); MEAN CORPUSCULAR VOLUME 83.3 fL (81-99); MONOCYTES # (AUTO) 1.5 (0.2-0.8); MONOCYTES % 15.9 % (4.4-11.3); NEUTROPHILS # (AUTO) 5.5 (2.1-6.9); NEUTROPHILS % 56.7 % (38.7-80.0); PLATELET COUNT 327 x10e3/uL (140-360); RED CELL DISTRIBUTION WIDTH 13.3 % (11.7-14.4)
[2017-08-24 10:25] LABS: ANION GAP 14.6 mmol/L (8-16); BLOOD UREA NITROGEN 9 mg/dL (7-26); BUN/CREATININE RATIO 13 (6-25); CALCIUM 8.7 mg/dL (8.4-10.2); CARBON DIOXIDE 24 mmol/L (22-29); CHLORIDE 101 mmol/L (98-107); CREATININE, SERUM 0.69 mg/dL (0.72-1.25); EST GLOMERULAR FILTRATION RATE > 60 ML/MIN (60-); GLUCOSE 117 mg/dL (74-118); POTASSIUM 3.6 mmol/L (3.5-5.1); SODIUM 136 mmol/L (136-145)
--- NOTE | 2017-08-24 11:00 | Diagnostic Imaging Report ---
PROCEDURE:CHEST SINGLE (PORTABLE) TECHNIQUE:Portable AP chest INDICATION:Chest pain COMPARISON:Patients [facility], DX, CHEST 2 VIEWS, 07/11/2017, 6:07. FINDINGS: Small pleural effusions, cardiomegaly and pulmonary edema. Grossly intact skeleton. CONCLUSION: Findings of congestive heart failure. Dictated by: Jayden Covington M.D. on 08/24/2017 at 11:00 Electronically approved by: Jayden Covington M.D. on 08/24/2017 at 11:00
[2017-08-24] MEDS ORDERED: REGLAN10 MG PO (11:29)
[2017-08-24] MEDS ORDERED: ASPIRIN ENTERI325 MG PO (11:29)
[2017-08-24] MEDS ORDERED: AZITHROMYCIN250 MG PO (11:29)
[2017-08-24] MEDS ORDERED: ALDACTONE25 MG PO (11:29)
[2017-08-24] MEDS ORDERED: KLOR-CON M2020 MEQ PO (11:29)
[2017-08-24] MEDS ORDERED: COREG12.5 MG PO (11:29)
[2017-08-24] MEDS ORDERED: LISINOPRIL2.5 MG PO (11:29)
[2017-08-24] MEDS ORDERED: LANOXIN250 MCG PO (11:29)
[2017-08-24] MEDS ORDERED: FUROSEMIDE40 MG PO (11:45)
[2017-08-24 11:47] LABS: ANISOCYTOSIS SLIGHT; EOSINOPHILS % (MANUAL) 6 % (0-7); LYMPHOCYTES % (MANUAL) 18 % (19-48); MONOCYTES % (MANUAL) 18 % (3.4-9.0); NEUTROPHILS % (MANUAL) 58 % (40-74); PLATELET ESTIMATE ADEQUATE; PLATELET MORPHOLOGY COMMENT FEW LARGE; RBC MORPHOLOGY COMMENT NORMAL
--- NOTE | 2017-08-24 13:05 | Diagnostic Imaging Report ---
PROCEDURE:CHEST SINGLE (PORTABLE) TECHNIQUE:Portable AP chest INDICATION:Post thoracentesis COMPARISON:Patients [facility], US, US GUIDANCE FOR THORACENTESIS, 08/22/2017, 12:22. Patients [facility], DX, CHEST SINGLE (NOT PORTABLE), 08/22/2017, 13:14. FINDINGS: Conclusion. CONCLUSION: 1. No evidence of pleural effusion or pneumothorax. 2. Mild cardiomegaly stable relative to August 22, 2017. 3. Clear lungs. 4. Intact skeleton. 5. Overlying defibrillator vest. Dictated by: Jayden Covington M.D. on 08/24/2017 at 13:05 Electronically approved by: Jayden Covington M.D. on 08/24/2017 at 13:05
--- NOTE | 2017-08-24 20:05 | Discharge Summary ---
ADMISSION DIAGNOSES 1. Congestive heart failure. 2. Pleural effusion on the right. 3. Leukocytosis. 4. Bilateral opacities. 5. Hyponatremia. DISCHARGE DIAGNOSES 1. Congestive heart failure. 2. Pleural effusion on the right. 3. Leukocytosis. 4. Bilateral opacities. 5. Hyponatremia. 6. Status post thoracentesis. HISTORY: The patient has a history of heart failure and hypertension. HOSPITAL COURSE: A 42-year-old male who presented with central and left chest pain that began about 3 days ago but became unbearable the day before admission. The pain was rated 8/10 and worsened with activity. The patient also complained of orthopnea and blood-tinged sputum that began over the last few days. Per the patient's family, he continues to work and gets dizzy intermittently with activity. On admission, a chest x-ray was done that showed CHF. The patient received Lovenox in the ER so the patient had to wait an additional day to be able to get a thoracentesis. During the thoracentesis, they were able to pool 1450 mL of naeem colored urine. Chest x-ray after the thoracentesis showed interval right thoracentesis with near complete evacuation of large right effusion, no pneumothorax. Due to the leukocytosis, blood cultures were done which were negative. Urine culture done, which was negative. Culture was done on the pleural fluid which showed no organisms after 2 days. The patient was started on Lasix, digoxin, potassium, and was given 5 days of Zithromax per pulmonology. The patient had a long talk with cardiology and family about his need for possible heart transplant. He was advised to go to [facility] and if insurance allowed he could go to [facility] as well. He appears to be unsure of any transplant options. He would like to get a 2nd opinion. Per his family, he continues to work, although with his EF being 20% cardiology does not recommend it. He recommends at least taking a couple of weeks off, but the patient is worried that if he quits working he would lose his insurance. The patient will follow up with Dr. Blackmon, sales operations assistant, in one week and with [facility] or [facility], whoever insurance would approve, for further heart failure treatment. Follow up with primary care physician in one week. Dictated by: Ashley Lebanon, TIRE CHANGER CAROL SMITH MD Job#: [id number] GH
== END 2017-08-24 15:44 | disposition home or self-care (01) | DRG 292 ==
LOC: ER 19:37 → ERHOLD 21:36 → UNDOADMIN 21:36 → EDBEDREQ 21:39 → ERHOLD 22:55 → MED/SURG2 08-21 01:31
PROVIDERS: ADMIT Internal Medicine; ATTEND Internal Medicine
PROC: 0W993ZX Drainage of Right Pleural Cavity, Percutaneous Approach, Diagnostic (ICD-10-PCS; principal; 2017-08-21)
DX: I11.0 Hypertensive heart disease with heart failure (principal); J90 Pleural effusion, not elsewhere classified; I42.9 Cardiomyopathy, unspecified; I50.23 Acute on chronic systolic (congestive) heart failure
CPT/HCPCS: 32555; 36415; 71045; 71260; 76604; 80048; 80053; 80061; 81001; 82550; 82553; 82945; 82948; 83615; 83735; 83880; 84157; 84484; 85025; 85610; 85730; 87040; 87070; 87086; 87205; 89051; 90732; 93005; 93306; 99284; J1160; J1650; J1940; J2270; J2405; J2765; J3480; J7040; Q9967

== ENCOUNTER 2021-09-20 17:44 | Inpatient (IN) | payer BC ==
[~2021-09-20] VITALS: Ht 170.2 cm; Wt 89.9 kg
[~2021-09-20 17:44] MED LIST changes: +ASPIRIN ENTERI325 MG PO; +AZITHROMYCIN250 MG PO; +COREG12.5 MG PO; +KLOR-CON M2020 MEQ PO; +LANOXIN250 MCG PO; +LISINOPRIL2.5 MG PO; +REGLAN10 MG PO
[2021-09-20] MEDS ORDERED: ONDANSETRON HCL INJ 2MG/ML 2ML 2 MG/ML VIAL IV STA ×2 (18:03→21:20)
[2021-09-20] MEDS ORDERED: LORAZEPAM INJ 2 MG/ML VIAL IV ONE (18:15)
[2021-09-20] MEDS ORDERED: SODIUM CHLORIDE 0.9% 1000ML 1,000 ML IV ONE (18:15)
[2021-09-20] MEDS ORDERED: Morphine 4mg Syringe 4 MG/ML INJ IV ONE (18:15)
[2021-09-20] MEDS ORDERED: MULTIVITAMINS- 12 INJECTION 10 ML, FOLIC ACID MDV 1 MG, THIAMINE HCL INJ 100 MG in SODI... IV ONE (18:30)
[2021-09-20 18:31] LABS: BASOPHILS # (AUTO) 0.1 (0.0-0.1); BASOPHILS % 1.2 % (0.0-1.0); EOSINOPHILS % 0.2 % (0.0-6.0); HEMATOCRIT 51.4 % (38.2-49.6); HEMOGLOBIN 18.2 g/dL (14.0-18.0); LYMPHOCYTES # (AUTO) 2.6 (1.0-3.2); LYMPHOCYTES % 27.1 % (18.0-39.1); MEAN CORPUSCULAR HGB CONC 35.4 g/dL (31-35); MEAN CORPUSCULAR VOLUME 87.6 fL (81-99); NEUTROPHILS # (AUTO) 5.8 (2.1-6.9); NEUTROPHILS % 61.3 % (38.7-80.0); PLATELET COUNT 253 x10e3/uL (140-360); RED BLOOD COUNT 5.87 x10e6/uL (4.3-5.7); RED CELL DISTRIBUTION WIDTH 13.2 % (11.7-14.4)
[2021-09-20 18:42] LABS: INR 1.05; PROTHROMBIN TIME 14.6 seconds (11.9-14.5)
[2021-09-20 18:43] LABS: PARTIAL THROMBOPLASTIN TIME 28.9 seconds (23.8-35.5)
[2021-09-20 18:50] LABS: ALBUMIN 4.3 g/dL (3.5-5.0); ALBUMIN/GLOBULIN RATIO 1.1 (0.8-2.0); ANION GAP 19.6 mmol/L (8-16); CALCIUM 9.2 mg/dL (8.4-10.2); CREATININE, SERUM 0.82 mg/dL (0.72-1.25); POTASSIUM 3.6 mmol/L (3.5-5.1)
[2021-09-20 18:56] LABS: CREATINE KINASE MB 1.9 ng/mL (0-5.0)
[2021-09-20] MEDS ORDERED: SODIUM CHLORIDE 0.9% 50ML 50 ML ONE (19:36)
[2021-09-20] MEDS ORDERED: IOPAMIDOL 370 MG/ML 200 ML INFUS..BTL INJ ONE (19:36)
[2021-09-20 19:46] LABS: CLARITY,URINE CLEAR (CLEAR); COLOR,URINE STRAW (YELLOW); KETONES,URINE NEGATIVE (NEGATIVE); LEUKOCYTE ESTERASE ,URINE NEGATIVE (NEGATIVE); NITRITE,URINE NEGATIVE (NEGATIVE); PROTEIN,URINE DIPSTICK TRACE (NEGATIVE)
[2021-09-20 19:47] LABS: AMPHETAMINES SCREEN,URINE NEGATIVE (NEGATIVE); BENZODIAZEPINES SCREEN,URINE NEGATIVE (NEGATIVE); PHENCYCLIDINE SCREEN,URINE NEGATIVE (NEGATIVE); URINE UROBILINOGEN 0.2 mg/dL (0.2 - 1)
[2021-09-20 20:00] LABS: RBC,URINE 0-5 /HPF (0-5); WBC,URINE (MAN) 0-5 /HPF (0-5)
[2021-09-20] MEDS ORDERED: ONDANSETRON HCL INJ 2MG/ML 2ML 2 MG/ML VIAL IV PRN (20:45)
[2021-09-20 21:35] VITALS: BP 144/100
[2021-09-20 22:00] VITALS: BP 146/95
[2021-09-20] MEDS: LORAZEPAM INJ 2 MG/ML VIAL IV PRN (22:15)
[2021-09-20 23:00] VITALS: BP 147/97
[2021-09-20] MEDS: CHLORDIAZEPOXIDE HCL 25 MG CAP PO SCH (23:49)
[2021-09-20 23:59] VITALS: BP 148/96
[2021-09-21] VITALS (26 sets, daily range): BP systolic 116–165; BP diastolic 82–115
[2021-09-21] MEDS: SODIUM CHLORIDE 0.9% 1000ML 1,000 ML IV SCH ×2 (02:05→04:45)
[2021-09-21] MEDS: LORAZEPAM INJ 2 MG/ML VIAL IV PRN ×2 (03:32→12:49)
[2021-09-21] MEDS: CHLORDIAZEPOXIDE HCL 25 MG CAP PO SCH ×4 (05:36→23:30)
[2021-09-21 06:00] LABS: BASOPHILS # (AUTO) 0.1 (0.0-0.1); BASOPHILS % 1.1 % (0.0-1.0); EOSINOPHILS # (AUTO) 0.1 (0.0-0.4); EOSINOPHILS % 0.9 % (0.0-6.0); HEMATOCRIT 48.8 % (38.2-49.6); HEMOGLOBIN 16.8 g/dL (14.0-18.0); LYMPHOCYTES # (AUTO) 2.9 (1.0-3.2); LYMPHOCYTES % 39.2 % (18.0-39.1); MEAN CORPUSCULAR HEMOGLOBIN 30.8 pg (28-32); MEAN CORPUSCULAR HGB CONC 34.4 g/dL (31-35); MEAN CORPUSCULAR VOLUME 89.5 fL (81-99); MONOCYTES % 13.7 % (4.4-11.3); NEUTROPHILS # (AUTO) 3.3 (2.1-6.9); PLATELET COUNT 181 x10e3/uL (140-360); RED BLOOD COUNT 5.45 x10e6/uL (4.3-5.7); RED CELL DISTRIBUTION WIDTH 13.4 % (11.7-14.4)
[2021-09-21] MEDS ORDERED: LORAZEPAM INJ 2 MG/ML VIAL IV ONE ×2 (06:30→07:30)
[2021-09-21 07:43] LABS: ALANINE AMINOTRANSFERASE 40 IU/L (0-55); ALBUMIN 3.5 g/dL (3.5-5.0); ALKALINE PHOSPHATASE 58 IU/L (40-150); AMYLASE 357 U/L (25-125); ANION GAP 12.2 mmol/L (8-16); BLOOD UREA NITROGEN < 5 mg/dL (7-26); CALCIUM 7.9 mg/dL (8.4-10.2); CARBON DIOXIDE 27 mmol/L (22-29); CHLORIDE 105 mmol/L (98-107); EST GLOMERULAR FILTRATION RATE 121 ML/MIN (60-); GLUCOSE 98 mg/dL (74-118); LIPASE 16 U/L (8-78); POTASSIUM 3.2 mmol/L (3.5-5.1); SODIUM 141 mmol/L (136-145)
[2021-09-21 07:56] LABS: BUN/CREATININE RATIO 7 (6-25)
[2021-09-21 08:27] LABS: CREATINE KINASE MB 1.7 ng/mL (0-5.0)
[2021-09-21] MEDS ORDERED: HYDRALAZINE HCL 20 MG/ML VIAL IV PRN (10:15)
[2021-09-21] MEDS ORDERED: ACETAMINOPHEN 325 MG TAB PO PRN (10:15)
[2021-09-21] MEDS ORDERED: POTASSIUM CHLORIDE 20MEQ/100ML 200 ML IV ONE (10:30)
[2021-09-21] MEDS ORDERED: THIAMINE HCL INJ 100 MG/ML 2ML VIAL IV ONE (10:30)
[2021-09-21] MEDS: LISINOPRIL 2.5 MG TAB PO SCH (10:34)
[2021-09-21] MEDS ORDERED: THIAMINE HCL INJ 100 MG in SODIUM CHLORIDE 0.9% 50ML 50 ML IV ONE (10:45)
[2021-09-21] MEDS: CARVEDILOL 12.5 MG TAB PO SCH ×2 (10:46→20:14)
[2021-09-21] MEDS: SUCRALFATE 1 GM TAB PO SCH ×3 (12:39→20:14)
[2021-09-21 15:09] LABS: CREATINE KINASE MB 1.5 ng/mL (0-5.0)
[2021-09-22] VITALS (14 sets, daily range): BP systolic 113–138; BP diastolic 79–99
[2021-09-22 05:05] LABS: BASOPHILS # (AUTO) 0.1 (0.0-0.1); EOSINOPHILS # (AUTO) 0.1 (0.0-0.4); EOSINOPHILS % 1.2 % (0.0-6.0); HEMATOCRIT 47.1 % (38.2-49.6); LYMPHOCYTES # (AUTO) 1.5 (1.0-3.2); LYMPHOCYTES % 22.9 % (18.0-39.1); MEAN CORPUSCULAR HEMOGLOBIN 31.1 pg (28-32); MEAN CORPUSCULAR VOLUME 91.5 fL (81-99); MONOCYTES % 15.1 % (4.4-11.3); NEUTROPHILS % 59.4 % (38.7-80.0); PLATELET COUNT 148 x10e3/uL (140-360); RED BLOOD COUNT 5.15 x10e6/uL (4.3-5.7); RED CELL DISTRIBUTION WIDTH 13.2 % (11.7-14.4)
[2021-09-22 05:21] LABS: ALBUMIN 3.4 g/dL (3.5-5.0); ALBUMIN/GLOBULIN RATIO 0.9 (0.8-2.0); ANION GAP 12.4 mmol/L (8-16); CALCIUM 8.9 mg/dL (8.4-10.2); CREATININE, SERUM 0.76 mg/dL (0.72-1.25); POTASSIUM 3.4 mmol/L (3.5-5.1)
[2021-09-22] MEDS: CHLORDIAZEPOXIDE HCL 25 MG CAP PO SCH ×4 (06:29→23:56)
[2021-09-22] MEDS: SUCRALFATE 1 GM TAB PO SCH ×4 (07:45→20:43)
[2021-09-22] MEDS: POTASSIUM CHLORIDE 20 MEQ TAB CR PO SCH (10:11)
[2021-09-22] MEDS: ASPIRIN 325 MG TAB EC PO SCH (10:11)
[2021-09-22] MEDS: CARVEDILOL 12.5 MG TAB PO SCH ×2 (10:11→20:44)
[2021-09-22] MEDS: LISINOPRIL 2.5 MG TAB PO SCH (10:12)
[2021-09-23] VITALS (7 sets, daily range): BP systolic 123–138; BP diastolic 92–100
[2021-09-23 05:05] LABS: BASOPHILS # (AUTO) 0.1 (0.0-0.1); BASOPHILS % 1.1 % (0.0-1.0); EOSINOPHILS # (AUTO) 0.2 (0.0-0.4); HEMATOCRIT 46.4 % (38.2-49.6); HEMOGLOBIN 15.7 g/dL (14.0-18.0); LYMPHOCYTES # (AUTO) 2.1 (1.0-3.2); LYMPHOCYTES % 31.5 % (18.0-39.1); MEAN CORPUSCULAR HEMOGLOBIN 31.1 pg (28-32); MEAN CORPUSCULAR HGB CONC 33.8 g/dL (31-35); MEAN CORPUSCULAR VOLUME 91.9 fL (81-99); MONOCYTES # (AUTO) 1.1 (0.2-0.8); MONOCYTES % 16.2 % (4.4-11.3); NEUTROPHILS # (AUTO) 3.2 (2.1-6.9); NEUTROPHILS % 47.7 % (38.7-80.0); PLATELET COUNT 134 x10e3/uL (140-360); RED BLOOD COUNT 5.05 x10e6/uL (4.3-5.7); RED CELL DISTRIBUTION WIDTH 13.1 % (11.7-14.4)
[2021-09-23 05:53] LABS: ALBUMIN 3.2 g/dL (3.5-5.0); ANION GAP 12.4 mmol/L (8-16); CREATININE, SERUM 0.82 mg/dL (0.72-1.25); POTASSIUM 3.4 mmol/L (3.5-5.1)
[2021-09-23 05:54] LABS: ALBUMIN/GLOBULIN RATIO 0.9 (0.8-2.0)
[2021-09-23] MEDS: CHLORDIAZEPOXIDE HCL 25 MG CAP PO SCH ×2 (06:10→12:00)
[2021-09-23] MEDS: SUCRALFATE 1 GM TAB PO SCH ×3 (07:30→16:30)
[2021-09-23] MEDS ORDERED: ONDANSETRON HCL 4 MG ORAL DISINTEGRATING TAB PO PRN (07:30)
[2021-09-23] MEDS: PANTOPRAZOLE SOD 40 MG TABEC PO SCH ×2 (09:00→17:00)
[2021-09-23] MEDS: CARVEDILOL 12.5 MG TAB PO SCH (09:00)
[2021-09-23] MEDS: LISINOPRIL 2.5 MG TAB PO SCH (09:00)
[2021-09-23] MEDS: ASPIRIN 325 MG TAB EC PO SCH (09:00)
[2021-09-23] MEDS: POTASSIUM CHLORIDE 20 MEQ TAB CR PO SCH (09:00)
[2021-09-23] MEDS ORDERED: VITAMIN B-1100 M1 PO (10:27)
[2021-09-23] MEDS ORDERED: FOLIC ACID0.4 MG PO (10:29)
[2021-09-23] MEDS ORDERED: PROTONIX20 MG PO (10:32)
== END 2021-09-23 17:44 | disposition home or self-care (01) | DRG 392 ==
LOC: ER 18:02 → ERHOLD 20:45 → ICU 21:37 → MED/SURG3 09-22 15:50
PROVIDERS: ADMIT Internal Medicine; ATTEND Internal Medicine
PROC: 02HV33Z Insertion of Infusion Device into Superior Vena Cava, Percutaneous Approach (ICD-10-PCS; principal; 2021-09-21)
DX: K29.20 Alcoholic gastritis without bleeding (principal); F10.230 Alcohol dependence with withdrawal, uncomplicated; I50.22 Chronic systolic (congestive) heart failure; E87.2 Acidosis; I11.0 Hypertensive heart disease with heart failure; F10.220 Alcohol dependence with intoxication, uncomplicated; K20.90 Esophagitis, unspecified without bleeding; Z95.810 Presence of automatic (implantable) cardiac defibrillator; Y90.8 Blood alcohol level of 240 mg/100 ml or more; Z20.822 Contact with and (suspected) exposure to COVID-19; F41.9 Anxiety disorder, unspecified; E87.6 Hypokalemia; D35.02 Benign neoplasm of left adrenal gland; T44.7X6A Underdosing of beta-adrenoreceptor antagonists, initial encounter; T46.4X6A Underdosing of angiotensin-converting-enzyme inhibitors, initial encounter
CPT/HCPCS: 36415; 36569; 71045; 74177; 80053; 80307; 80320; 81001; 82150; 82550; 82553; 83605; 83690; 83735; 84484; 85025; 85610; 85730; 87040; 93005; 93306; 94799; 97139; 99284; J0360; J2060; J2270; J2405; J3411; J3480; J7030; Q9967; U0002